=== PATIENT | female | born 1990 | race African-American/Black ===

== ENCOUNTER 2017-01-06 23:29 | Emergency (ER) | payer OTHER ==
[~2017-01-06] VITALS: Ht 177.8 cm; Wt 58.0 kg
[~2017-01-06 23:29] MED LIST: DIFL150T PO
[2017-01-06 23:32] VITALS: BP 102/61; PULSE 87; RESP 16; TEMP 98; O2SAT 100
== END 2017-01-07 00:36 | disposition left against medical advice (07) ==
LOC: NED 23:29
DX: R10.30 Lower abdominal pain, unspecified (principal)
CPT/HCPCS: 99281

== ENCOUNTER 2017-01-24 15:24 | Emergency (ER) | payer OTHER ==
[~2017-01-24] VITALS: Ht 177.8 cm; Wt 56.0 kg
[2017-01-24 15:27] VITALS: BP 108/54; PULSE 130; RESP 24; TEMP 99.1; O2SAT 98
[2017-01-24 17:00] VITALS: BP 97/64; PULSE 82; RESP 16; O2SAT 97
[2017-01-24] MEDS ORDERED: SODIUM CHLOR 0.9% 1000 ML INJ 1,000 ML IV ONE (17:30)
[2017-01-24] MEDS ORDERED: KETOROLAC TROMETHAMINE 30 MG/ML (IVP) VIAL IV PUSH ONE (17:30)
[2017-01-24] MEDS ORDERED: ONDANSETRON HCL 4 MG/2 ML VIAL IV PUSH ONE (17:30)
--- NOTE | 2017-01-24 17:39 | PD ---
HPI Chief Complaint: GI Complaint Time Seen by Provider: 17:15 Travel History International Travel<30 days: No Contact w/Intl Traveler<30days: No Traveled to known affect area: No History of Present Illness HPI This is a 26-year-old female who presents to the emergency department with lower abdominal pain that started yesterday during sexual intercourse, described as sharp, starting in her right lower quadrant and radiating around her back into the left, worse last evening but continuing throughout the day today and intermittently causing her to cry. She says "she feels like she is going to ". She's vomited multiple times today. She does report some white vaginal discharge. She denies any fevers or chills. She doesn't remember when her last menstrual cycle was. PFSH Past Medical History Atrial Fibrillation: No Coronary Artery Disease: No Diabetes: No ?: Not LMP: 12/24/16 : 1 Miscarriage: 1 Social History Alcohol Use: Yes (OCCASIONAL) Tobacco Use: No Substance Use: No Allergies-Medications (Allergen,Severity, Reaction): Coded Allergies: Latex (Verified Allergy, Intermediate, itching, 01/24/17) Sulfa (Verified Allergy, Intermediate, Rash, 01/24/17) Reported Meds & Prescriptions Reported Meds & Active Scripts Active No Active Prescriptions or Reported Medications Review of Systems Except as stated in HPI: all other systems reviewed are Neg Physical Exam Narrative GENERAL:Well appearing, no acute distress SKIN: Warm and dry. HEAD: Atraumatic. Normocephalic. EYES: Pupils equal and round. No injection or drainage. ENT: Moist mucous membranes NECK: Trachea midline. CARDIOVASCULAR: Regular rate and rhythm. No murmur appreciated. RESPIRATORY: Clear to auscultation. Breath sounds equal bilaterally. GASTROINTESTINAL: Abdomen soft, tender to palpation with rebound in the left lower quadrant. 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 NEUROLOGICAL: Awake and alert. No obvious cranial nerve deficits. Moving all extremities. PSYCHIATRIC: Appropriate mood and affect; insight and judgment normal. Data Data Last Documented VS Vital Signs Date Time Temp Pulse Resp B/P Pulse Ox O2 Delivery O2 Flow Rate FiO2 01/24/17 19:02 80 16 102/60 97 Room Air 01/24/17 15:27 99.1 Orders Complete Blood Count With Diff (01/24/17 17:23) Comprehensive Metabolic Panel (01/24/17 17:23) ^ Insert Iv (01/24/17 17:23) Ed Urine Pregnancytest Poc (01/24/17 17:23) Us Pelvis Comp W Doppler (01/24/17 ) Ketorolac Inj (Toradol Inj) (01/24/17 17:30) Sodium Chlor 0.9% 1000 Ml Inj (Ns 1000 M (01/24/17 17:30) Ondansetron Inj (Zofran Inj) (01/24/17 17:30) Wet Prep Profile (01/24/17 17:23) Gc And Chlamydia Pcr (01/24/17 17:23) Ct Abd/Pel W Iv Contrast(Rout) (01/24/17 ) Morphine Inj (Morphine Inj) (01/24/17 19:45) Labs Laboratory Tests Test 01/24/17 01/24/17 17:35 18:50 White Blood Count 9.4 TH/MM3 Red Blood Count 4.49 MIL/MM3 Hemoglobin 11.6 GM/DL Hematocrit 35.7 % Mean Corpuscular Volume 79.6 FL Mean Corpuscular Hemoglobin 25.8 PG Mean Corpuscular Hemoglobin 32.4 % Concent Red Cell Distribution Width 15.5 % Platelet Count 158 TH/MM3 Mean Platelet Volume 9.5 FL Neutrophils (%) (Auto) 89.5 % Lymphocytes (%) (Auto) 5.3 % Monocytes (%) (Auto) 4.7 % Eosinophils (%) (Auto) 0.1 % Basophils (%) (Auto) 0.4 % Neutrophils # (Auto) 8.4 TH/MM3 Lymphocytes # (Auto) 0.5 TH/MM3 Monocytes # (Auto) 0.4 TH/MM3 Eosinophils # (Auto) 0.0 TH/MM3 Basophils # (Auto) 0.0 TH/MM3 CBC Comment DIFF FINAL Differential Comment Sodium Level 134 MEQ/L Potassium Level 4.5 MEQ/L Chloride Level 102 MEQ/L Carbon Dioxide Level 25.9 MEQ/L Anion Gap 6 MEQ/L Blood Urea Nitrogen 5 MG/DL Creatinine 0.86 MG/DL Estimat Glomerular Filtration 97 ML/MIN Rate Random Glucose 79 MG/DL Calcium Level 9.2 MG/DL Total Bilirubin 0.7 MG/DL Aspartate Amino Transf 31 U/L (AST/SGOT) Alanine Aminotransferase 26 U/L (ALT/SGPT) Alkaline Phosphatase 55 U/L Total Protein 7.8 GM/DL Albumin 3.8 GM/DL Clue Cells (Wet Prep) NONE SEEN Vaginal Trichomonas (Wet Prep) NONE SEEN Vaginal Yeast (Wet Prep) NONE SEEN MDM Medical Decision Making Medical Screen Exam Complete: Yes Emergency Medical Condition: Yes Interpretation(s) No leukocytosis, left shift Electrolytes are reassuring Wet prep is negative Differential Diagnosis Ovarian cyst rupture, ovarian torsion, tubo-ovarian abscess, appendicitis, kidney stone, urinary tract infection Narrative Course This is a 26-year-old female who presents to the emergency department with right lower abdominal pain that started fairly abruptly during sexual intercourse yesterday. Clinical history is consistent with an ovarian cyst but the patient does have tachycardia on arrival and has had multiple episodes of vomiting today. She is placed on a monitor and an IV was established. Labs demonstrate no leukocytosis but a left shift. Pelvic exam demonstrates some white thick discharge with right adnexal tenderness. She does have a history of chlamydia back in February of last year. Ultrasound will be obtained to rule out torsion or tubo-ovarian abscess and CT abdomen and pelvis will be obtained to rule out appendicitis. Patient will be discharged by oncoming provider. I think if both imaging studies are negative the patient should be treated for pelvic inflammatory disease. Scripts No Active Prescriptions or Reported Meds Niharika Christianson MD Jan 24, 2017 17:39
[2017-01-24 18:16] LABS: AUTOMATED NEUTROPHIL # 8.4 TH/MM3 (1.8-7.7); BASOPHIL % 0.4 % (0.0-2.0); EOSINOPHIL % 0.1 % (0.0-4.0); HEMATOCRIT 35.7 % (35.0-46.0); HEMO FLAGS DIFF FINAL; LYMPH % 5.3 % (9.0-44.0); LYMPHOCYTE # 0.5 TH/MM3 (1.0-4.8); MEAN CELL VOLUME 79.6 FL (80.0-100.0); MEAN CORPUSCULAR HEMOGLOBIN 25.8 PG (27.0-34.0); MEAN CORPUSCULAR HGB CONC 32.4 % (32.0-36.0); MONO % 4.7 % (0.0-8.0); NEUT % 89.5 % (16.0-70.0); PLATELET COUNT 158 TH/MM3 (150-450); RED BLOOD COUNT 4.49 MIL/MM3 (4.00-5.30); RED CELL DISTRIBUTION WIDTH 15.5 % (11.6-17.2); WHITE BLOOD COUNT 9.4 TH/MM3 (4.0-11.0)
[2017-01-24 18:43] LABS: ALKALINE PHOSPHATASE 55 U/L (45-117); TOTAL BILIRUBIN ADULT 0.7 MG/DL (0.2-1.0)
[2017-01-24 18:49] LABS: ALT (GPT) 26 U/L (10-53); ANION GAP 6 MEQ/L (5-15); AST (GOT) 31 U/L (15-37); BICARBONATE 25.9 MEQ/L (21.0-32.0); BLOOD UREA NITROGEN 5 MG/DL (7-18); CHLORIDE 102 MEQ/L (98-107); GLOMERULAR FILTRATION RATE 97 ML/MIN (>89); POTASSIUM 4.5 MEQ/L (3.5-5.1); SODIUM (NA) 134 MEQ/L (136-145)
[2017-01-24 19:02] VITALS: BP 102/60; PULSE 80; RESP 16; O2SAT 97
[2017-01-24] MEDS ORDERED: MORPHINE SULFATE 4 MG/ML INJ IV PUSH ONE (19:45)
[2017-01-24] MEDS ORDERED: DIATRIZOATE MEGLUM/DIATRIZOATE SOD 9 ML CUP ONE (19:59)
--- NOTE | 2017-01-24 20:17 | RADRPT ---
EXAM DATE/TIME: 01/24/2017 19:01 [facility] COMPARISON: No previous studies available for comparison. INDICATIONS : Pelvic pain. MEDICAL HISTORY : . Miscarriage. SURGICAL HISTORY : None. ENCOUNTER: Initial ACUITY: 2 days PAIN SCORE: 10/10 LOCATION: Bilateral pelvis MEASUREMENTS: UTERUS: 8.4 x 4.7 x 3.1 cm ENDOMETRIAL STRIPE: 9 mm RIGHT OVARY: 4.4 x 3.0 x 2.6 cm LEFT OVARY: 2.8 x 2.1 x 1.5 cm FINDINGS: UTERUS: The myometrium has homogeneous echotexture without mass. RIGHT OVARY: complex cystic lesion measures 24 x 20 x 16 mm. Minimal peripheral vascularity. LEFT OVARY: Ovary contains no mass or significant cystic lesion. MISCELLANEOUS: Small amount free fluid. CONCLUSION: 1. Complex cystic lesion right ovary measures 2.4 cm. This may be related to an involuting cyst. Clos e interval followup recommended. 2. Small amount of pelvic free fluid. Karthikeyan Leiva MD on January 24, 2017 at 20:12 Board Certified Radiologist. This report was verified electronically.
[2017-01-24 20:27] LABS: BLOOD, URINE NEG (NEG); COMMENT (UR) CULT NOT INDICATED; CULTURE IF INDICATED CULT NOT INDICATED; GLUCOSE,URINE NEG (NEG); KETONE, URINE NEG (NEG); NITRITE,URINE NEG (NEG); SQUAMOUS EPITHELIAL CELL URINE <1 /hpf (0-5); URINE COLOR YELLOW (YELLW/STRAW)
[2017-01-24] MEDS ORDERED: IOHEXOL 350 MG/ML 10 ML VIAL (for RAD DIAG) IV ONE (21:36)
--- NOTE | 2017-01-24 21:55 | RADRPT ---
EXAM DATE/TIME: 01/24/2017 21:36 [facility] COMPARISON: No previous studies available for comparison. INDICATIONS : Right lower quadrant pain; possible appendicitis. IV CONTRAST: 62 cc Omnipaque 350 (iohexol) IV ORAL CONTRAST: Partial prescribed oral contrast ingested. RADIATION DOSE: 4.75 CTDIvol (mGy) MEDICAL HISTORY : None SURGICAL HISTORY : None. ENCOUNTER: Initial ACUITY: 1 day PAIN SCALE: 7/10 LOCATION: Right lower quadrant TECHNIQUE: Volumetric scanning of the abdomen and pelvis was performed. Using automated exposure control and ad justment of the mA and/or kV according to patient size, radiation dose was kept as low as reasonably achievable to obtain optimal diagnostic quality images. FINDINGS: LOWER LUNGS: The visualized lower lungs are clear. LIVER: Homogeneous density without lesion. There is no dilation of the biliary tree. No calcified gallston es. SPLEEN: Normal size without lesion. PANCREAS: Within normal limits. KIDNEYS: Normal in size and shape. There is no mass, stone or hydronephrosis. ADRENAL GLANDS: Within normal limits. VASCULAR: There is no aortic aneurysm. BOWEL/MESENTERY: The stomach, small bowel, and colon demonstrate no acute abnormality. There is no free intraperitone al air or fluid. ABDOMINAL WALL: Within normal limits. RETROPERITONEUM: There is no lymphadenopathy. BLADDER: No wall thickening or mass. REPRODUCTIVE: Small hemorrhagic cyst measures 1.9 cm right ovary. Small pelvic free fluid. INGUINAL: There is no lymphadenopathy or hernia. MUSCULOSKELETAL: Within normal limits for patient age. CONCLUSION: 1. Normal appendix. 2. Small hemorrhagic cyst the right ovary measured 1.9 cm with small pelvic free fluid. Karthikeyan Leiva MD on January 24, 2017 at 21:50 Board Certified Radiologist. This report was verified electronically.
[2017-01-24 22:17] LABS: CHLAMYDIA PCR DETECTED (NOT DETECT); NEISSERIA PCR DETECTED (NOT DETECT)
--- NOTE | 2017-01-24 22:27 | PD ---
Data Data Last Documented VS Vital Signs Date Time Temp Pulse Resp B/P Pulse Ox O2 Delivery O2 Flow Rate FiO2 01/24/17 19:02 80 16 102/60 97 Room Air 01/24/17 15:27 99.1 Orders Complete Blood Count With Diff (01/24/17 17:23) Comprehensive Metabolic Panel (01/24/17 17:23) ^ Insert Iv (01/24/17 17:23) Ed Urine Pregnancytest Poc (01/24/17 17:23) Ketorolac Inj (Toradol Inj) (01/24/17 17:30) Sodium Chlor 0.9% 1000 Ml Inj (Ns 1000 M (01/24/17 17:30) Ondansetron Inj (Zofran Inj) (01/24/17 17:30) Wet Prep Profile (01/24/17 17:23) Gc And Chlamydia Pcr (01/24/17 17:23) Ct Abd/Pel W Iv Contrast(Rout) (01/24/17 ) Morphine Inj (Morphine Inj) (01/24/17 19:45) Urinalysis - C+S If Indicated (01/24/17 19:36) Oral Contrast - Adult (01/24/17 19:48) Us Pelvis Comp W Dop Transvag (01/24/17 ) Diatrizoate Liq ( Gastroview Liq) (01/24/17 19:59) Iohexol 350 Inj (Omnipaque 350 Inj) (01/24/17 21:36) Azithromycin Powd Pack (Zithromax Powd P (01/24/17 22:30) Ceftriaxone Inj (Rocephin Inj) (01/24/17 22:30) Lidocaine 1% Inj (50 Ml) (Xylocaine 1% I (01/24/17 22:30) Labs Laboratory Tests Test 01/24/17 01/24/17 01/24/17 17:35 18:50 19:50 White Blood Count 9.4 TH/MM3 Red Blood Count 4.49 MIL/MM3 Hemoglobin 11.6 GM/DL Hematocrit 35.7 % Mean Corpuscular Volume 79.6 FL Mean Corpuscular Hemoglobin 25.8 PG Mean Corpuscular Hemoglobin 32.4 % Concent Red Cell Distribution Width 15.5 % Platelet Count 158 TH/MM3 Mean Platelet Volume 9.5 FL Neutrophils (%) (Auto) 89.5 % Lymphocytes (%) (Auto) 5.3 % Monocytes (%) (Auto) 4.7 % Eosinophils (%) (Auto) 0.1 % Basophils (%) (Auto) 0.4 % Neutrophils # (Auto) 8.4 TH/MM3 Lymphocytes # (Auto) 0.5 TH/MM3 Monocytes # (Auto) 0.4 TH/MM3 Eosinophils # (Auto) 0.0 TH/MM3 Basophils # (Auto) 0.0 TH/MM3 CBC Comment DIFF FINAL Differential Comment Sodium Level 134 MEQ/L Potassium Level 4.5 MEQ/L Chloride Level 102 MEQ/L Carbon Dioxide Level 25.9 MEQ/L Anion Gap 6 MEQ/L Blood Urea Nitrogen 5 MG/DL Creatinine 0.86 MG/DL Estimat Glomerular Filtration 97 ML/MIN Rate Random Glucose 79 MG/DL Calcium Level 9.2 MG/DL Total Bilirubin 0.7 MG/DL Aspartate Amino Transf 31 U/L (AST/SGOT) Alanine Aminotransferase 26 U/L (ALT/SGPT) Alkaline Phosphatase 55 U/L Total Protein 7.8 GM/DL Albumin 3.8 GM/DL Clue Cells (Wet Prep) NONE SEEN Vaginal Trichomonas (Wet Prep) NONE SEEN Vaginal Yeast (Wet Prep) NONE SEEN Chlamydia trachomatis DNA DETECTED (PCR) Neisseria gonorrhoeae DNA DETECTED (PCR) Urine Color YELLOW Urine Turbidity CLEAR Urine pH 8.0 Urine Specific [place] 1.019 Urine Protein NEG mg/dL Urine Glucose (UA) NEG mg/dL Urine Ketones NEG mg/dL Urine Occult Blood NEG Urine Nitrite NEG Urine Bilirubin NEG Urine Urobilinogen LESS THAN 2.0 MG/DL Urine Leukocyte Esterase NEG Urine RBC 2 /hpf Urine WBC 4 /hpf Urine Squamous Epithelial <1 /hpf Cells Microscopic Urinalysis Comment CULT NOT INDICATED [facility] Medical Record Reviewed: Yes Supervised Visit with [facility]ST: No Narrative Course CBC & BMP Diagram 01/24/17 17:35 Wet prep negative x 3 LFTs normal UA normal Serology + for Chlamygida and Gonorrhea Last 24 hours Impressions Abdomen/Pelvis/Transvag US 01/24/17 0000 Signed Impressions: Service Date/Time: Tuesday, January 24, 2017 19:01 - CONCLUSION: 1. Complex cystic lesion right ovary measures 2.4 cm. This may be related to an involuting cyst. Close interval followup recommended. 2. Small amount of pelvic free fluid. Karthikeyan Leiva MD Abdomen/Pelvis CT 01/24/17 0000 Signed Impressions: Service Date/Time: Tuesday, January 24, 2017 21:36 - CONCLUSION: 1. Normal appendix. 2. Small hemorrhagic cyst the right ovary measured 1.9 cm with small pelvic free fluid. Karthikeyan Leiva MD Please refer to outgoing provider note. Rocephin/Azithromycin started. Doxy prescribed. Pain controlled. Follow up with Dr Oconnor. Return precautions. Diagnosis Primary Impression: Cervicitis Additional Impression: Ovarian cyst Qualified Code: N83.201 - Cyst of right ovary Referrals: Lucero Oconnor MD 2 days [facility] Nurse 2 days Additional Instruction: You have a choice when it comes to health care, and we are glad that you chose [facility]. Hopefully, we have met your expectations on today's visit. You are welcome to return to [facility] at any time, as we are committed to meeting the health care needs of our community. Med/Other Pt SpecificInfo: Prescription(s) given Scripts Doxycycline Hyclate 100 Mg Dmc470 Mg PO BID #28 CAP Ref 0 Prov:Anderson Grace MD 01/24/17 Disposition: 01 DISCHARGE HOME Condition: Stable Anderson Grace MD Jan 24, 2017 22:27
[2017-01-24] MEDS ORDERED: cefTRIAXone 250 MG VIAL IM ONE (22:30)
[2017-01-24] MEDS ORDERED: LIDOCAINE HCL 1% 50 ML VIAL IM ONE (22:30)
[2017-01-24] MEDS ORDERED: AZITHROMYCIN PWD FOR SUSP 1 GM PACKET PO ONE (22:30)
[2017-01-24] MEDS ORDERED: DOXY100C PO (22:34)
== END 2017-01-25 00:13 | disposition home or self-care (01) ==
LOC: NEPC 15:24
DX: N72 Inflammatory disease of cervix uteri (principal); N83.201 Unspecified ovarian cyst, right side; R11.10 Vomiting, unspecified; R00.0 Tachycardia, unspecified
CPT/HCPCS: 74177; 76830; 76856; 80053; 81001; 84703; 85025; 87210; 87491; 87591; 93975; 96361; 96372; 96374; 96375; 99284; J0696; J1885; J2270; J2405; J7030; Q9963; Q9967

== ENCOUNTER 2017-07-11 22:58 | Emergency (ER) | payer OTHER ==
[~2017-07-11] VITALS: Ht 179.1 cm; Wt 57.3 kg
[~2017-07-11 22:58] MED LIST changes: -DIFL150T PO; +DOXY100C PO
[2017-07-11 23:06] VITALS: BP 99/57; PULSE 67; RESP 14; TEMP 99; O2SAT 100
--- NOTE | 2017-07-11 23:47 | PD ---
HPI Chief Complaint: GI Complaint Time Seen by Provider: 23:46 Travel History International Travel<30 days: No Contact w/Intl Traveler<30days: No Traveled to known affect area: No History of Present Illness HPI The patient is a 26-year-old female, G3, P0, A2both spontaneous abortions who states she is 6-7 weeks , her last missed her period was May 23, and she has nausea and some slight pelvic pain in the left pelvis. She denies any vaginal bleeding. She does not know her blood type. 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 [facility] Past Medical History Medical History: Denies Significant Hx Atrial Fibrillation: No Coronary Artery Disease: No Diabetes: No Diminished Hearing: No Tetanus Vaccination: < 5 Years Influenza Vaccination: Yes ?: LMP: 05/23/17 : 3 Miscarriage: 2 Past Surgical History Surgical History: No Previous Surgery Social History Alcohol Use: Yes (OCCASIONAL) Tobacco Use: No Substance Use: No Allergies-Medications (Allergen,Severity, Reaction): Coded Allergies: Latex (Verified Allergy, Intermediate, itching, 07/11/17) Sulfa (Verified Allergy, Intermediate, Rash, 07/11/17) Reported Meds & Prescriptions Reported Meds & Active Scripts Active Review of Systems Except as stated in HPI: all other systems reviewed are Neg Physical Exam Narrative GENERAL: The patient is alert, oriented 3 in minimal apparent distress with her left pelvic pain. Her vital signs are normal. SKIN: Focused skin assessment warm/dry. HEAD: Atraumatic. Normocephalic. EYES: Pupils equal and round. No scleral icterus. No injection or drainage. ENT: No nasal bleeding or discharge. Mucous membranes pink and moist. NECK: Trachea midline. No JVD. CARDIOVASCULAR: Regular rate and rhythm. No murmur appreciated. RESPIRATORY: No accessory muscle use. Clear to auscultation. Breath sounds equal bilaterally. GASTROINTESTINAL: Abdomen soft, with minimal discomfort in the left pelvis, nondistended. Hepatic and splenic margins not palpable. No guarding or rebound is present. MUSCULOSKELETAL: No obvious deformities. No clubbing. No cyanosis. No edema. NEUROLOGICAL: Awake and alert. No obvious cranial nerve deficits. Motor grossly within normal limits. Normal speech. PSYCHIATRIC: Appropriate mood and affect; insight and judgment normal. GENITOURINARY: Normal external genitalia without lesions or erythema. Vaginal vault without blood and there is a white drainage. Cervical os was closed with clear drainage. No cervical motion tenderness. Uterus nontender and 8 weeks enlarged. Bilateral adnexa nontender without masses. Data Data Last Documented VS Vital Signs Date Time Temp Pulse Resp B/P Pulse Ox O2 Delivery O2 Flow Rate FiO2 07/11/17 23:34 18 07/11/17 23:06 99.0 67 99/57 100 Room Air Orders Beta Hcg (Quant/Titer) (07/11/17 23:48) Complete Blood Count With Diff (07/11/17 23:48) Basic Metabolic Panel (Bmp) (07/11/17 23:48) Complete Rh (07/11/17 23:48) Urinalysis - C+S If Indicated (07/11/17 23:48) Labs Laboratory Tests Test 07/12/17 00:18 White Blood Count 7.3 TH/MM3 Red Blood Count 4.12 MIL/MM3 Hemoglobin 10.6 GM/DL Hematocrit 33.0 % Mean Corpuscular Volume 80.1 FL Mean Corpuscular Hemoglobin 25.7 PG Mean Corpuscular Hemoglobin 32.1 % Concent Red Cell Distribution Width 16.0 % Platelet Count 176 TH/MM3 Mean Platelet Volume 8.7 FL Neutrophils (%) (Auto) 69.4 % Lymphocytes (%) (Auto) 22.2 % Monocytes (%) (Auto) 5.5 % Eosinophils (%) (Auto) 2.5 % Basophils (%) (Auto) 0.4 % Neutrophils # (Auto) 5.1 TH/MM3 Lymphocytes # (Auto) 1.6 TH/MM3 Monocytes # (Auto) 0.4 TH/MM3 Eosinophils # (Auto) 0.2 TH/MM3 Basophils # (Auto) 0.0 TH/MM3 CBC Comment DIFF FINAL Differential Comment Sodium Level 137 MEQ/L Potassium Level 3.6 MEQ/L Chloride Level 103 MEQ/L Carbon Dioxide Level 25.2 MEQ/L Anion Gap 9 MEQ/L Blood Urea Nitrogen 7 MG/DL Creatinine 0.70 MG/DL Estimat Glomerular Filtration 123 ML/MIN Rate Random Glucose 86 MG/DL Calcium Level 8.7 MG/DL Human Chorionic Gonadotropin, [address] MIU/ML Quant MDM Medical Decision Making Medical Screen Exam Complete: Yes Emergency Medical Condition: Yes Medical Record Reviewed: Yes Interpretation(s) The beta-hCG is 28,735. This corresponds to 2-3 months post conception. The CBC shows a hemoglobin of 10.6 with a hematocrit of 33.0 but is otherwise normal. The basic metabolic profile is normal. Differential Diagnosis Ectopic , ligament pain, ovarian cyst Narrative Course The patient has minimal tenderness and an appropriate size uterus for her beta titer. She likely has some ovarian pain but this is minimal, the tenderness is almost nonexistent. Diagnosis Primary Impression: Ovarian cyst Additional Impression: Intrauterine Med/Other Pt SpecificInfo: No Change to Meds Disposition: 01 DISCHARGE HOME Condition: Stable Jordan Mcdaniel MD Jul 11, 2017 23:47
[2017-07-12 00:43] LABS: AUTOMATED NEUTROPHIL # 5.1 TH/MM3 (1.8-7.7); BASOPHIL % 0.4 % (0.0-2.0); EOSINOPHIL # 0.2 TH/MM3 (0-0.4); EOSINOPHIL % 2.5 % (0.0-4.0); HEMO FLAGS DIFF FINAL; LYMPH % 22.2 % (9.0-44.0); LYMPHOCYTE # 1.6 TH/MM3 (1.0-4.8); MEAN CELL VOLUME 80.1 FL (80.0-100.0); MEAN CORPUSCULAR HEMOGLOBIN 25.7 PG (27.0-34.0); MEAN CORPUSCULAR HGB CONC 32.1 % (32.0-36.0); MONO % 5.5 % (0.0-8.0); NEUT % 69.4 % (16.0-70.0); PLATELET COUNT 176 TH/MM3 (150-450); RED BLOOD COUNT 4.12 MIL/MM3 (4.00-5.30); WHITE BLOOD COUNT 7.3 TH/MM3 (4.0-11.0)
[2017-07-12 00:50] LABS: POTASSIUM 3.6 MEQ/L (3.5-5.1)
[2017-07-12 00:53] LABS: BICARBONATE 25.2 MEQ/L (21.0-32.0)
[2017-07-12] MEDS ORDERED: ZOFR4TAB3 SL (01:32)
[2017-07-12 01:41] VITALS: BP 98/55; TEMP 98.7
[2017-07-12] MEDS ORDERED: ONDANSETRON HCL 4 MG/2 ML VIAL IV ONE (01:45)
== END 2017-07-12 01:56 | disposition home or self-care (01) ==
LOC: PHED 22:58
DX: O34.81 Maternal care for other abnormalities of pelvic organs, first trimester (principal); N83.209 Unspecified ovarian cyst, unspecified side; Z3A.01 Less than 8 weeks gestation of pregnancy
CPT/HCPCS: 80048; 84702; 85025; 86901; 99284; J2405

== ENCOUNTER 2017-11-04 11:03 | Emergency (ER) | payer OTHER ==
[~2017-11-04 11:03] MED LIST changes: -DOXY100C PO; +ZOFR4TAB3 SL
[2017-11-04] MEDS ORDERED: LACTATED RINGER'S 1000 ML INJ 1,000 ML IV SCH (11:54)
--- NOTE | 2017-11-04 11:57 | PD ---
HPI Chief Complaint Contractions Date Seen: Nov 04, 2017 Time Seen: 11:45 Travel History International Travel<30 Days: No Contact w/Intl Traveler<30Days: No Known Affected Area: No ( ) History of Present Illness HPI Patient is a 27 year old at 23/4 weeks gestation, patient of Anna Srivastava, that presents to the [facility] ED with chief complaints of contractions and vomiting. Patient states that on Thursday night, 11/02/17, she experienced cramping abdominal pain and vomited once. The next day, she was okay , but the pain returned this morning. She was able to eat a light breakfast and headed to work at the pain increased and she vomited twice which prompted her to come to the ED. She describes the pain as 9.5/10 squeezing pain in her middle abdomen. Notably, the patient has had nausea and vomiting throughout this and has not been able to keep food down most of the time. She has lost 10 pounds during this . She is not taking any medication for nausea. She denies fever or chills, dysuria, abnormal vaginal discharge, and vaginal bleeding. She had sexual intercourse last night. Weeks Gestation: 23 Para: 0 : 2 History Past Medical History Narrative Medical Chronic back pain Anemia during Obstetric History Obstetric History -1 miscarriage at 8 weeks in January 2017 Past Surgical History Surgical History: No Previous Surgery Family History Narrative Family History Dad had an unknown type of cancer Mom is healthy Social History Alcohol Use: No Tobacco Use: No Substance Abuse: No Allergies-Medications (Allergen,Severity, Reaction): Coded Allergies: Sulfa (Sulfonamide Antibiotics) (Unverified Allergy, Intermediate, Rash, ) latex (Unverified Allergy, Intermediate, itching, 07/14/17) Home Meds Active Scripts Ferrous Sulfate (Ferrous Sulfate) 325 Mg (65 Mg Iron) Tablet, 325 MG PO BIDPC for Nutritional Supplement, #60 TAB 0 Refills Prov:Shama Guerrero MD R2 11/04/17 Promethazine Supp (Phenergan Supp) 25 Mg Supp, 25 MG RECTAL Q6H Y for NAUSEA OR VOMITING, #6 SUPP 0 Refills Prov:Shama Guerrero MD R2 11/04/17 Promethazine (Phenergan) 25 Mg Tablet, 25 MG PO Q6H Y for NAUSEA OR VOMITING, # 120 TAB 1 Refill Prov:Eko,Shama Ramsey MD R2 11/04/17 Ondansetron Odt (Zofran Odt) 4 Mg Tab, 4 MG SL Q6HR Y for Nausea/Vomiting, #30 TAB 0 Refills Prov:Jordan Mcdaniel MD 07/12/17 Review of Systems Except as stated in HPI: all other systems reviewed are Neg Physical Exam Narrative GENERAL: Well-nourished, well-developed patient. SKIN: Warm and dry. HEAD: Normocephalic and atraumatic. EYES: No scleral icterus. No injection or drainage. ENT: No nasal drainage noted. Mucous membranes pink. Airway patent. NECK: Supple, trachea midline. No JVD. CARDIOVASCULAR: Regular rate and rhythm without murmurs, gallops, or rubs. RESPIRATORY: Breath sounds equal bilaterally. No accessory muscle use. ABDOMEN/GI: Abdomen soft, non-tender, bowel sounds present, no rebound, no guarding Gravid abdomen GENITOURINARY: External Genitalia: intact and normal in appearance Cervix: Posterior, thick, closed Membranes: Intact Uterine Contractions: Present, frequent, irregular FHT's: Category: I Baseline: 140 Reactive: Accelerations present Variability: Moderate Decels: None EXTREMITIES: No cyanosis or edema. NEUROLOGICAL: Awake and alert. Motor and sensory grossly within normal limits. Five out of 5 muscle strength in all muscle groups. Normal speech. Data Data Vital Signs Reviewed: Yes Orders Orders Vital Signs (Adult) .ON ADMISSION (11/04/17 11:54) ^ Labor Status (11/04/17 11:54) Urinalysis - C+S If Indicated (11/04/17 11:54) ^ Non Stress Test (11/04/17 11:54) ^ Hydration (11/04/17 11:54) Cbc No Diff, Includes Plts (11/04/17 11:54) Comprehensive Metabolic Panel (11/04/17 11:54) Lactated Ringer's 1000 Ml Inj (Lr 1000 M (11/04/17 11:54) Ondansetron Inj (Zofran Inj) (11/04/17 12:00) Drug Screen, Random Urine (11/04/17 11:54) MDM Medical Record Reviewed: Yes Interpretation(s) 27-year-old at 23/4 presents with premature contractions and a urinary tract infection Plan Intrauterine , heart tones reassuring at category 1 -Contractions present on tocometer -Cervix closed -LR boluses -Fentanyl 25 g IV -Terbutaline 0.25mg subq -Will check UA, CBC, and CMP for UTI/dehydration, anemia, and electrolytes COURSE -Pt felt better after 2 fluid boluses, fentanyl, and 1 dose of terbutaline with diminished contractions -CBC showed anemia, CMP was wnl except for a slight hyponatremia of 134, glucose of 72, and albumin of 2.9 -UA was indicative of a UTI -Will send home with a prescription for one-time dose of fosfomycin 3gm powder for UTI -Phenergan by mouth with backup Phenergan suppository Diagnosis Diagnosis: Primary Impression: uterine contractions in second trimester, antepartum Additional Impression: Nausea and vomiting during Disposition: DISCHARGE HOME Condition: Stable Scripts Ferrous Sulfate (Ferrous Sulfate) 325 Mg (65 Mg Iron) Tablet 325 MG PO BIDPC for Nutritional Supplement, #60 TAB 0 Refills Prov: Shama Guerrero MD R2 11/04/17 Promethazine Supp (Phenergan Supp) 25 Mg Supp 25 MG RECTAL Q6H Y for NAUSEA OR VOMITING, #6 SUPP 0 Refills Prov: Shama Guerrero MD R2 11/04/17 Promethazine (Phenergan) 25 Mg Tablet 25 MG PO Q6H Y for NAUSEA OR VOMITING, #120 TAB 1 Refill Prov: Shama Guerrero MD R2 11/04/17 Patient Instructions: Abdominal Pain in (ED), General Instructions, Nausea and Vomiting in (ED), Labor (ED), Urinary Tract Infection in (ED) Shama Guerrero MD R2 Nov 04, 2017 11:57
[2017-11-04] MEDS ORDERED: ONDANSETRON HCL 4 MG/2 ML VIAL IV PUSH ONE (12:00)
[2017-11-04 12:24] LABS: HEMATOCRIT 30.1 % (35.0-46.0); MEAN CELL VOLUME 81.2 FL (80.0-100.0); MEAN CORPUSCULAR HEMOGLOBIN 26.2 PG (27.0-34.0); MEAN CORPUSCULAR HGB CONC 32.3 % (32.0-36.0); PLATELET COUNT 201 TH/MM3 (150-450); RED BLOOD COUNT 3.71 MIL/MM3 (4.00-5.30); REVIEW FLAG FINAL; WHITE BLOOD COUNT 10.9 TH/MM3 (4.0-11.0)
[2017-11-04] MEDS ORDERED: PROM1SUP7 RECTAL (12:31)
[2017-11-04] MEDS ORDERED: PROM25TA10 PO (12:31)
[2017-11-04] MEDS ORDERED: FERR325T18 PO (12:31)
[2017-11-04 12:41] LABS: BACTERIA, URINE RARE /hpf; BLOOD, URINE NEG (NEG); COMMENT (UR) CULTURE INDICATED; CULTURE IF INDICATED CULTURE INDICATED; GLUCOSE,URINE NEG (NEG); KETONE, URINE NEG (NEG); MUCUS URINE FEW /lpf (OCC); NITRITE,URINE NEG (NEG); PH, URINE 7.5 (5.0-8.5); SQUAMOUS EPITHELIAL CELL URINE 6 /hpf (0-5); URINE COLOR YELLOW (YELLW/STRAW)
[2017-11-04] MEDS ORDERED: TERBUTALINE INJ 1 MG/ML AMP SQ PRN (12:45)
[2017-11-04 12:47] LABS: ALT (GPT) 48 U/L (10-53); ANION GAP 6 MEQ/L (5-15); AST (GOT) 30 U/L (15-37); BICARBONATE 25.3 MEQ/L (21.0-32.0); BLOOD UREA NITROGEN 5 MG/DL (7-18); CHLORIDE 103 MEQ/L (98-107); GLOMERULAR FILTRATION RATE 158 ML/MIN (>89); POTASSIUM 4.1 MEQ/L (3.5-5.1); SODIUM (NA) 134 MEQ/L (136-145)
[2017-11-04 12:49] LABS: ALKALINE PHOSPHATASE 68 U/L (45-117); TOTAL BILIRUBIN ADULT 0.2 MG/DL (0.2-1.0)
[2017-11-04 14:02] VITALS: BP 101/59; PULSE 104; TEMP 97.3
== END 2017-11-04 14:30 | disposition home or self-care (01) ==
LOC: HOBED 11:03
DX: O60.02 Preterm labor without delivery, second trimester (principal); O21.2 Late vomiting of pregnancy; O23.42 Unspecified infection of urinary tract in pregnancy, second trimester; B96.89 Other specified bacterial agents as the cause of diseases classified elsewhere; Z3A.23 23 weeks gestation of pregnancy
CPT/HCPCS: 80053; 80307; 81001; 85027; 87086; 96361; 96372; 96374; 96375; 99284; J2405; J3010; J3105; J7120

== ENCOUNTER 2017-11-09 16:55 | Emergency (ER) | payer OTHER ==
[~2017-11-09 16:55] MED LIST changes: +FERR325T18 PO; +PROM1SUP7 RECTAL; +PROM25TA10 PO
[2017-11-09 16:57] VITALS: BP 107/57; PULSE 75; RESP 17; TEMP 98.6; O2SAT 99
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
[2017-11-09 19:09] VITALS: BP 100/62; PULSE 62; RESP 18; O2SAT 100
[2017-11-09] MEDS ORDERED: KETOROLAC TROMETHAMINE 60 MG/2 ML (IM) VIAL IM ONE (19:15)
== END 2017-11-09 19:54 | disposition home or self-care (01) ==
LOC: NEPD 16:55
DX: O9A.212 Injury, poisoning and certain other consequences of external causes complicating pregnancy, second trimester (principal); S16.1XXA Strain of muscle, fascia and tendon at neck level, initial encounter; S29.012A Strain of muscle and tendon of back wall of thorax, initial encounter; V49.40XA Driver injured in collision with unspecified motor vehicles in traffic accident, initial encounter; Z3A.00 Weeks of gestation of pregnancy not specified
CPT/HCPCS: 96372; 99285; J1885

== ENCOUNTER 2017-12-12 23:16 | Emergency (ER) | payer OTHER ==
[~2017-12-12] VITALS: Ht 180.3 cm; Wt 70.3 kg
[2017-12-12] MEDS ORDERED: LACTATED RINGER'S 1000 ML INJ 1,000 ML IV SCH (23:42)
[2017-12-12] MEDS ORDERED: TERBUTALINE INJ 1 MG/ML AMP SQ PRN (23:45)
[2017-12-13] VITALS (18 sets, daily range): PULSE 65–106; O2SAT 100
--- NOTE | 2017-12-13 00:01 | PD ---
HPI Chief Complaint Contraction pain Date Seen: Dec 12, 2017 Time Seen: 23:55 Travel History International Travel<30 Days: No Contact w/Intl Traveler<30Days: No Known Affected Area: No History of Present Illness HPI 27-year-old black female 28 weeks go see [facility] Srivast[facility] care presents complaining of contractions. Denies bleeding or rupture the membranes. heart rate tracing is reactive. She is trip every 3 minutes. Weeks Gestation: 28 Para: 0 : 2 Miscarriage: 1 History Obstetric History Obstetric History 1 early loss Social History Alcohol Use: No Tobacco Use: No Substance Abuse: No Allergies-Medications (Allergen,Severity, Reaction): Coded Allergies: Sulfa (Sulfonamide Antibiotics) (Unverified Allergy, Intermediate, Rash, ) latex (Unverified Allergy, Intermediate, itching, 12/12/17) Home Meds Active Scripts Nitrofurantoin Monohydrate Macrocrystals (Macrobid) 100 Mg Cap, 100 MG PO BID for Infection for 7 Days, #14 CAP 0 Refills Prov:Crow Jones II, MD 12/13/17 Ferrous Sulfate (Ferrous Sulfate) 325 Mg (65 Mg Iron) Tablet, 325 MG PO BIDPC for Nutritional Supplement, #60 TAB 0 Refills Prov:Shama Guerrero MD R2 11/04/17 Promethazine Supp (Phenergan Supp) 25 Mg Supp, 25 MG RECTAL Q6H Y for NAUSEA OR VOMITING, #6 SUPP 0 Refills Prov:Shama Guerrero MD R2 11/04/17 Promethazine (Phenergan) 25 Mg Tablet, 25 MG PO Q6H Y for NAUSEA OR VOMITING, # 120 TAB 1 Refill Prov:Shama Guerrero MD R2 11/04/17 Ondansetron Odt (Zofran Odt) 4 Mg Tab, 4 MG SL Q6HR Y for Nausea/Vomiting, #30 TAB 0 Refills Prov:Jordan Mcdaniel MD 07/12/17 Review of Systems General / Constitutional: No: Fever, Weight Gain, Chills, Other Eyes: No: Diploplia, Blurred Vision, Visual changes, Pain, Photophobia HENT: No: Headaches, Vertigo, Lightheadedness Cardiovascular: No: Irregular Rhythm, Chest Pain or Discomfort, Palpitations, Tachycardia, Syncope, Varicosities, Edema, Cyanosis Respiratory: No: Cough, Short of Breath, Other Gastrointestinal: Abdominal Pain, No: Nausea, Vomiting, Diarrhea Genitourinary: No: Decreased Urinary Output, Oliguria Musculoskeletal: No: Limited ROM, Weakness, Cramping, Edema, Pain Skin: No Rash, No Itching, No Dryness, No Lumps, No Change in Pigmentation, No Change in Nails, No Alopecia, No Lesions Neurologic: No: Weakness, Dizziness, Syncope, Focal Abnormalities, Coordination Problem, Headache, Slurred Speech, Seizures Psychiatric: No: Depression, Suicidal Ideations, Homicidal Ideation Endocrine: No: Heat Intolerance, Cold Intolerance, Polydipsia, Polyuria, Other Physical Exam Narrative GENERAL: Well-nourished, well-developed patient. SKIN: Warm and dry. HEAD: Normocephalic and atraumatic. EYES: No scleral icterus. No injection or drainage. ENT: No nasal drainage noted. Mucous membranes pink. Airway patent. NECK: Supple, trachea midline. No JVD. CARDIOVASCULAR: Regular rate and rhythm without murmurs, gallops, or rubs. RESPIRATORY: Breath sounds equal bilaterally. No accessory muscle use. BREASTS: Bilateral exam showed no masses , no retractions, no nipple discharge. ABDOMEN/GI: Abdomen soft, non-tender, bowel sounds present, no rebound, no guarding Gravid to [-28] weeks size Fundal Height: [-28] GENITOURINARY: External Genitalia: intact and normal in appearance BUS glands: [-] Cervix: [post-] Dilatation: [closed-] Effacement: [thick-] Station: [-3] Presentation: [-] Membranes: [intact ] Uterine Contractions: [q 3 min-] FHT's: Category: [1-] Baseline: [133-] Reactive: [R-] Variability: [-mod] Decels: [-none] EXTREMITIES: No cyanosis or edema. BACK: Nontender without obvious deformity. No CVA tenderness. NEUROLOGICAL: Awake and alert. Motor and sensory grossly within normal limits. Five out of 5 muscle strength in all muscle groups. Normal speech. Data Data Orders Orders Vital Signs (Adult) .ON ADMISSION (12/12/17 23:42) ^ Labor Status (12/12/17 23:42) Urinalysis - C+S If Indicated (12/12/17 23:42) ^ Non Stress Test (12/12/17 23:42) Fibronectin (12/12/17 23:42) Lactated Ringer's 1000 Ml Inj (Lr 1000 M (12/12/17 23:42) Terbutaline Inj (Brethine Inj) (12/12/17 23:45) Fentanyl Inj (Fentanyl Inj) (12/12/17 23:45) MDM Interpretation(s) 's patient is 27-year-old black female at 28 weeks size clinically contractions, she is trip every 3 minutes initially on presentation. Cervix is closed and thick. Denies bleeding or ruptured membranes. heart rate tracing is reactive. fibronectin done -- positive, urinalysis shows moderate leukocyte esterase and trace protein , UA from lab + for UTI - give 100 mg IV gentamicin 1 time then po macrobid for 1 week Plan Plan of initial tocolyse as with IV fluid, subcutaneous terbutaline, and IV fentanyl , IV gent for UTI then po macrobid for 1 wk , with + FFN will give betamethasone 12 mg IM now and have her return for 2 nd shot in 24 hr Diagnosis Diagnosis: Primary Impression: Threatened labor, antepartum Additional Impressions: 28 weeks gestation of UTI (urinary tract infection) during Disposition: 01 DISCHARGE HOME Condition: Stable Scripts Nitrofurantoin Monohydrate Macrocrystals (Macrobid) 100 Mg Cap 100 MG PO BID for Infection for 7 Days, #14 CAP 0 Refills Prov: Crow Jones II, MD 12/13/17 Crow Jones II, MD Dec 13, 2017 00:01
[2017-12-13 00:11] LABS: AMORPHOUS SEDIMENT, URINE RARE; BACTERIA, URINE OCC /hpf; BILIRUBIN, URINE NEG (NEG); BLOOD, URINE NEG (NEG); GLUCOSE,URINE NEG (NEG); KETONE, URINE NEG (NEG); NITRITE,URINE NEG (NEG); SQUAMOUS EPITHELIAL CELL URINE 12 /hpf (0-5); URINE COLOR YELLOW (YELLW/STRAW); URINE LEUKOCYTE ESTERASE LARGE (NEG); WHITE BLOOD CELL CLUMPS FEW
[2017-12-13] MEDS ORDERED: MACR100C2 PO (00:50)
[2017-12-13] MEDS ORDERED: BETAMETHASONE SOD PHOS/ACETATE SUSP 30 MG/5 ML VIAL IM ONE (01:00)
[2017-12-13] MEDS ORDERED: GENTAMICIN INJ 100 MG in SODIUM CHLORIDE 0.9% INJ 100 ML IV ONE (01:00)
== END 2017-12-13 02:08 | disposition home or self-care (01) ==
LOC: HOBED 23:16
DX: O60.03 Preterm labor without delivery, third trimester (principal); O23.43 Unspecified infection of urinary tract in pregnancy, third trimester; Z3A.28 28 weeks gestation of pregnancy
CPT/HCPCS: 81001; 82731; 87086; 96361; 96365; 96372; 96375; 99284; J0702; J1580; J3010; J3105; J7120

== ENCOUNTER → 2017-12-14 | Outpatient (CLI) | payer OTHER ==
[2017-12-14] MEDS: BETAMETHASONE SOD PHOS/ACETATE SUSP 30 MG/5 ML VIAL IM (08:51)
== END ==
LOC: HOBG 08:22
DX: O60.03 Preterm labor without delivery, third trimester (principal); N39.0 Urinary tract infection, site not specified
CPT/HCPCS: 96372

== ENCOUNTER 2017-12-28 15:40 | Emergency (ER) | payer OTHER ==
[~2017-12-28 15:40] MED LIST changes: +MACR100C2 PO
--- NOTE | 2017-12-28 16:53 | PD ---
HPI Chief Complaint cramping Travel History International Travel<30 Days: No Contact w/Intl Traveler<30Days: No Known Affected Area: No History of Present Illness HPI 27-year-old , IUP at 31.1 care complicated by history of positive fibronectin status post betamethasone on December 13 and The patient presents reporting that she had nausea with 2 episodes of emesis around lunchtime at about 1:30. She subsequently was able to tolerate oral intake. She reports that she was noticing contractions at work that were every 2-3 minutes. By the time she came into decreased to cramping that she felt every 5 minutes. However she reports that since she is arrived. The contractions and cramping have stopped. She denies any aggravating or alleviating factors other than noted, and denies any attempted treatments. The patient denies any vaginal bleeding or leaking of fluid. The patient reports good movement. Weeks Gestation: 31 Para: 0 : 2 History Obstetric History Obstetric History SAB 1 Past Surgical History Surgical History: No Previous Surgery Family History Family History: Negative Social History Alcohol Use: No Tobacco Use: No Substance Abuse: No Allergies-Medications (Allergen,Severity, Reaction): Coded Allergies: Sulfa (Sulfonamide Antibiotics) (Unverified Allergy, Intermediate, Rash, ) latex (Unverified Allergy, Intermediate, itching, 12/13/17) Home Meds Active Scripts Nitrofurantoin Monohydrate Macrocrystals (Macrobid) 100 Mg Cap, 100 MG PO BID for Infection for 7 Days, #14 CAP 0 Refills Prov:Crow Jones II, MD 12/13/17 Ferrous Sulfate (Ferrous Sulfate) 325 Mg (65 Mg Iron) Tablet, 325 MG PO BIDPC for Nutritional Supplement, #60 TAB 0 Refills Prov:Shama Guerrero MD R2 11/04/17 Promethazine Supp (Phenergan Supp) 25 Mg Supp, 25 MG RECTAL Q6H Y for NAUSEA OR VOMITING, #6 SUPP 0 Refills Prov:Shama Guerrero MD R2 11/04/17 Promethazine (Phenergan) 25 Mg Tablet, 25 MG PO Q6H Y for NAUSEA OR VOMITING, # 120 TAB 1 Refill Prov:Shama Guerrero MD R2 11/04/17 Ondansetron Odt (Zofran Odt) 4 Mg Tab, 4 MG SL Q6HR Y for Nausea/Vomiting, #30 TAB 0 Refills Prov:Jordan Mcdaniel MD 07/12/17 Review of Systems Except as stated in HPI: all other systems reviewed are Neg Physical Exam Narrative GENERAL: Well-nourished, well-developed patient. SKIN: Warm and dry. HEAD: Normocephalic and atraumatic. EYES: No scleral icterus. No injection or drainage. ENT: No nasal drainage noted. Mucous membranes pink. Airway patent. NECK: Supple, trachea midline. No JVD. CARDIOVASCULAR: Regular rate and rhythm without murmurs, gallops, or rubs. RESPIRATORY: Breath sounds equal bilaterally. No accessory muscle use. BREASTS: Deferred ABDOMEN/GI: Abdomen soft, non-tender, bowel sounds present, no rebound, no guarding Gravid GENITOURINARY: External Genitalia: intact and normal in appearance. Physiologic discharge. Grossly normal rugae visible on speculum exam. No cervical or vaginal masses noted. fibronectin was obtained and was positive. SVE 1/thick/high with examination unchanged over observation period of greater than 1.5 hours FHT's: heart tones are in the 130s moderate long-term variability, good accelerations, no decelerations noted. The patient has a category 1 heart rate tracing and reactive NST for gestational age. EXTREMITIES: No cyanosis or edema. BACK: Nontender without obvious deformity. NEUROLOGICAL: Awake and alert. Motor and sensory grossly within normal limits. Five out of 5 muscle strength in all muscle groups. Normal speech. Muscle skeletal: Grossly normal range of motion, gait, muscle strength Psychiatric: Grossly normal memory and affect Data Data Orders Orders Vital Signs (Adult) .ON ADMISSION (12/28/17 16:51) ^ Labor Status (12/28/17 16:51) Urinalysis - C+S If Indicated (12/28/17 16:51) ^ Non Stress Test (12/28/17 16:51) Fibronectin (12/28/17 16:51) MDM Plan Assessment/plan: 1. IUP at 31.1 2. contractions: Contractions resolved with terbutaline 1. The patient has a positive fibronectin but there has been no cervical exchange operator a greater than 1.5 hour observation. Of note the patient is received betamethasone on 12/13/17 and 12/14/17. The patient is given strict labor precautions and pelvic rest. She is to maintain light activity. She was counseled to return for any worsening contractions or concerns of labor. She was counseled that she is already received betamethasone but we would like to utilize magnesium sulfate for neuro protection and further tocolysis if there is evidence of labor. 3. Possible UTI: Will Rx Macrobid 100 mg by mouth twice a day, the patient is given first dose here. Her and cultures pending. Patient was instructed to follow up on the urine culture in 2 days. 4. well-being: The patient had Reassuring testing with a reactive NST and category 1 heart rate tracing. kick counts daily. 5. F/U with primary Ob in 2-3d or sooner if needed Diagnosis Diagnosis: Primary Impression: 31 weeks gestation of Additional Impression: False labor Jeanette Vivas MD Dec 28, 2017 16:53
[2017-12-28 17:12] LABS: BACTERIA, URINE RARE /hpf; BILIRUBIN, URINE NEG (NEG); BLOOD, URINE NEG (NEG); GLUCOSE,URINE NEG (NEG); KETONE, URINE NEG (NEG); MUCUS URINE FEW /lpf (OCC); NITRITE,URINE NEG (NEG); SQUAMOUS EPITHELIAL CELL URINE 7 /hpf (0-5); URINE COLOR YELLOW (YELLW/STRAW); URINE LEUKOCYTE ESTERASE LARGE (NEG)
[2017-12-28] MEDS ORDERED: NITROFURANTOIN MONOHYD MACROCR 100 MG CAP PO ONE (18:30)
[2017-12-28] MEDS ORDERED: TERBUTALINE INJ 1 MG/ML AMP SQ ONE (18:30)
== END 2017-12-28 19:17 | disposition home or self-care (01) ==
LOC: HOBED 15:40
DX: O47.03 False labor before 37 completed weeks of gestation, third trimester (principal); R82.99 Other abnormal findings in urine; Z3A.31 31 weeks gestation of pregnancy
CPT/HCPCS: 81001; 82731; 87086; 96372; 99284; J3105

== ENCOUNTER 2018-01-03 23:57 | Inpatient (IN) | payer OTHER ==
[~2018-01-03] VITALS: Ht 180.3 cm; Wt 62.0 kg
[2018-01-04] VITALS (175 sets, daily range): BP systolic 97–120; BP diastolic 47–78; PULSE 74–108; RESP 15–18; TEMP 97.7–98.7; O2SAT 98–100
--- NOTE | 2018-01-04 01:00 | PD ---
HPI Chief Complaint ctx Date Seen: Jan 04, 2018 Time Seen: 00:53 Travel History International Travel<30 Days: No Contact w/Intl Traveler<30Days: No Known Affected Area: No History of Present Illness HPI 27y/o @ 32.2wks. She has PNC with [facility] Srivastava. She presents c/o ctx q8mins. No LOF/VB. +FM. Pt was seen on 12/12 for ctx. Had a +FFM. Received terbutaline and BMZ on 12/13 and 12/14. Also was dx'd with a UTI and given IV abx and PO macrobid Rx. States that she was compliant. Returned on 12/28 and had a +FFN again and UTI. Rx macrobid. Pt states she complied with them. She reports that she has not had sex recently. Weeks Gestation: 32 Para: 0 : 2 History Past Medical History Medical History: Denies Significant Hx Obstetric History Obstetric History SAB x1 Past Surgical History Surgical History: No Previous Surgery Family History Family History: Negative Social History Alcohol Use: No Tobacco Use: No Substance Abuse: No Allergies-Medications (Allergen,Severity, Reaction): Coded Allergies: Sulfa (Sulfonamide Antibiotics) (Unverified Allergy, Intermediate, Rash, ) latex (Unverified Allergy, Intermediate, itching, 12/13/17) Home Meds Active Scripts Nitrofurantoin Monohydrate Macrocrystals (Macrobid) 100 Mg Cap, 100 MG PO BID for Infection for 7 Days, #14 CAP 0 Refills Prov:Crow Jones II, MD 12/13/17 Ferrous Sulfate (Ferrous Sulfate) 325 Mg (65 Mg Iron) Tablet, 325 MG PO BIDPC for Nutritional Supplement, #60 TAB 0 Refills Prov:Shama Guerrero MD R2 11/04/17 Promethazine Supp (Phenergan Supp) 25 Mg Supp, 25 MG RECTAL Q6H Y for NAUSEA OR VOMITING, #6 SUPP 0 Refills Prov:Shama Guerrero MD R2 11/04/17 Promethazine (Phenergan) 25 Mg Tablet, 25 MG PO Q6H Y for NAUSEA OR VOMITING, # 120 TAB 1 Refill Prov:Shama Guerrero MD R2 11/04/17 Ondansetron Odt (Zofran Odt) 4 Mg Tab, 4 MG SL Q6HR Y for Nausea/Vomiting, #30 TAB 0 Refills Prov:Jordan Mcdaniel MD 07/12/17 Review of Systems Except as stated in HPI: all other systems reviewed are Neg Physical Exam Narrative General: well developed, well nourished, no acute distress HEENT: normocephalic atraumatic, extraocular movements intact, neck supple Abdomen: soft, gravid, nontender, nondistended Extremities: full range of motion Skin: normal coloration, no rashes, no suspicious skin lesions noted Neurologic: cranial nerves 2-12 grossly intact, normal muscle tone, normal gait Psychiatric: normal mood and affect, appropriate FHTs: 135, +accels, no decels, moderate variability, reactive [place]: irritable with occasional ctx Cvx: /-3 Data Data Vital Signs Reviewed: Yes Orders Orders Vital Signs (Adult) .ON ADMISSION (01/04/18 00:48) ^ Labor Status (01/04/18 00:48) Urinalysis - C+S If Indicated (01/04/18 00:48) ^ Non Stress Test (01/04/18 00:48) Fibronectin (01/04/18 00:48) MDM Plan 27y/o @ 32.2wks with threatened PTL. -- FFN sent -- cervix 80/-3 (changed from last week) -- s/p BMZ -- admit to [facility], CEFM/toco Diagnosis Diagnosis: Primary Impression: 32 weeks gestation of Additional Impression: Threatened labor Harsha Christopher MD Jan 04, 2018 01:00
--- NOTE | 2018-01-04 01:13 | HHI.PR ---
[employer] Note Note HPI HPI Chief Complaint ctx Date Seen: Jan 04, 2018 Time Seen: 00:53 Travel History International Travel<30 Days: No Contact w/Intl Traveler<30Days: No Known Affected Area: No History of Present Illness HPI 27y/o @ 32.2wks. She has PNC with [facility] Srivastava. She presents c/o ctx q8mins. No LOF/VB. +FM. Pt was seen on 12/12 for ctx. Had a +FFM. Received terbutaline and BMZ on 12/13 and 12/14. Also was dx'd with a UTI and given IV abx and PO macrobid Rx. States that she was compliant. Returned on 12/28 and had a +FFN again and UTI. Rx macrobid. Pt states she complied with them. She reports that she has not had sex recently. Weeks Gestation: 32 Para: 0 : 2 History (Limited) History Past Medical History Medical History: Denies Significant Hx Obstetric History Obstetric History SAB x1 Past Surgical History Surgical History: No Previous Surgery Family History Family History: Negative Social History Alcohol Use: No Tobacco Use: No Substance Abuse: No Allergies-Medications Allergies-Medications (Allergen,Severity, Reaction): Coded Allergies: Sulfa (Sulfonamide Antibiotics) (Unverified Allergy, Intermediate, Rash, ) latex (Unverified Allergy, Intermediate, itching, 12/13/17) Home Meds Active Scripts Nitrofurantoin Monohydrate Macrocrystals (Macrobid) 100 Mg Cap, 100 MG PO BID for Infection for 7 Days, #14 CAP 0 Refills Prov:Crow Jones II, MD 12/13/17 Ferrous Sulfate (Ferrous Sulfate) 325 Mg (65 Mg Iron) Tablet, 325 MG PO BIDPC for Nutritional Supplement, #60 TAB 0 Refills Prov:Shama Guerrero MD R2 11/04/17 Promethazine Supp (Phenergan Supp) 25 Mg Supp, 25 MG RECTAL Q6H Y for NAUSEA OR VOMITING, #6 SUPP 0 Refills Prov:Shama Guerrero MD R2 11/04/17 Promethazine (Phenergan) 25 Mg Tablet, 25 MG PO Q6H Y for NAUSEA OR VOMITING, # 120 TAB 1 Refill Prov:Shama Guerrero MD R2 11/04/17 Ondansetron Odt (Zofran Odt) 4 Mg Tab, 4 MG SL Q6HR Y for Nausea/Vomiting, #30 TAB 0 Refills Prov:Jordan Mcdaniel MD 07/12/17 ROS Review of Systems Except as stated in HPI: all other systems reviewed are Neg Physical Exam Physical Exam Narrative General: well developed, well nourished, no acute distress HEENT: normocephalic atraumatic, extraocular movements intact, neck supple Abdomen: soft, gravid, nontender, nondistended Extremities: full range of motion Skin: normal coloration, no rashes, no suspicious skin lesions noted Neurologic: cranial nerves 2-12 grossly intact, normal muscle tone, normal gait Psychiatric: normal mood and affect, appropriate FHTs: 135, +accels, no decels, moderate variability, reactive [place]: irritable with occasional ctx Cvx: /-3 Data Data Data Vital Signs Reviewed: Yes Orders Orders Vital Signs (Adult) .ON ADMISSION (01/04/18 00:48) ^ Labor Status (01/04/18 00:48) Urinalysis - C+S If Indicated (01/04/18 00:48) ^ Non Stress Test (01/04/18 00:48) Fibronectin (01/04/18 00:48) MDM MDM Plan 27y/o @ 32.2wks with threatened PTL. -- FFN sent -- cervix 80/-3 (changed from last week) -- s/p BMZ -- admit to [facility], CEFM/toco Diagnosis Diagnosis: Primary Impression: 32 weeks gestation of Additional Impression: Threatened labor Harsha Christopher MD Jan 04, 2018 01:13
[2018-01-04] MEDS ORDERED: ACETAMINOPHEN 325 MG TAB PO PRN (01:15)
[2018-01-04] MEDS ORDERED: ONDANSETRON ODT 4 MG TAB PO PRN (01:15)
[2018-01-04] MEDS ORDERED: SODIUM CHLORIDE 0.9% FLUSH 10 ML FLUSH IV FLUSH PRN ×2 (01:15→10:45)
[2018-01-04] MEDS ORDERED: ZOLPIDEM TARTRATE 5 MG TAB PO PRN (01:15)
[2018-01-04] MEDS ORDERED: ONDANSETRON HCL 4 MG/2 ML VIAL IV PUSH PRN (01:15)
[2018-01-04 01:29] LABS: BACTERIA, URINE RARE /hpf; BILIRUBIN, URINE NEG (NEG); BLOOD, URINE NEG (NEG); GLUCOSE,URINE NEG (NEG); KETONE, URINE NEG (NEG); MUCUS URINE FEW /lpf (OCC); NITRITE,URINE NEG (NEG); PH, URINE 6.5 (5.0-8.5); RENAL EPITHELIAL CELLS 1 /hpf; SQUAMOUS EPITHELIAL CELL URINE 5 /hpf (0-5); TRANSITIONAL EPI CELLS, URINE <1 /hpf; URINE COLOR LIGHT-YELLOW (YELLW/STRAW); URINE LEUKOCYTE ESTERASE LARGE (NEG)
[2018-01-04 02:03] LABS: BASOPHIL % 0.3 % (0.0-2.0); EOSINOPHIL # 0.4 TH/MM3 (0-0.4); EOSINOPHIL % 5.4 % (0.0-4.0); HEMATOCRIT 29.6 % (35.0-46.0); HEMOGLOBIN 9.8 GM/DL (11.6-15.3); LYMPH % 20.3 % (9.0-44.0); LYMPHOCYTE # 1.5 TH/MM3 (1.0-4.8); MEAN CELL VOLUME 77.9 FL (80.0-100.0); MEAN CORPUSCULAR HEMOGLOBIN 25.9 PG (27.0-34.0); MEAN CORPUSCULAR HGB CONC 33.3 % (32.0-36.0); MEAN PLATELET VOLUME 8.9 FL (7.0-11.0); MONO % 7.3 % (0.0-8.0); MONOCYTE # 0.6 TH/MM3 (0-0.9); NEUT % 66.7 % (16.0-70.0); PLATELET COUNT 180 TH/MM3 (150-450); RED CELL DISTRIBUTION WIDTH 16.1 % (11.6-17.2); WHITE BLOOD COUNT 7.6 TH/MM3 (4.0-11.0)
[2018-01-04] MEDS ORDERED: LACTATED RINGER'S 1000 ML INJ 500 ML IV ONE (04:00)
--- NOTE | 2018-01-04 08:41 | PD.OB.ANTE ---
Subjective Interval History 27 y/o at 32/2 weeks admitted for pre-term labor. States she had some vaginal bleeding after the cervical check last night. Endorses regular contractions and movement. Denies any new other concerns this morning. Denies any headaches, blurry vision, dysuria, leg pain/swelling. Antepartum ROS: Reports: Vaginal bleeding (after vaginal exam), movement normal, Contractions, Denies: Loss of fluid, Other Objective Vital Signs Vital Signs Date Time Temp Pulse Resp B/P (MAP) Pulse Ox O2 Delivery O2 Flow Rate FiO2 01/04/18 07:30 17 01/04/18 06:00 74 01/04/18 06:00 98.0 18 01/04/18 06:00 109/63 (78) 01/04/18 03:55 18 01/04/18 03:54 97.7 87 107/61 (76) 01/04/18 01:41 82 103/68 (80) 01/04/18 01:40 97.7 18 Intake & Output 01/04/18 01/04/18 07:00 19:00 Intake Total 500 ml Balance 500 ml Intake IV Total 500 ml Lab & Micro Results Test 01/04/18 00:50 01/04/18 00:59 01/04/18 01:54 Urine Color LIGHT-YELLOW Urine Turbidity CLEAR Urine pH 6.5 Urine Specific [place] 1.011 Urine Protein NEG mg/dL Urine Glucose (UA) NEG mg/dL Urine Ketones NEG mg/dL Urine Occult Blood NEG Urine Nitrite NEG Urine Bilirubin NEG Urine Urobilinogen LESS THAN 2.0 MG/DL Urine Leukocyte Esterase LARGE Urine RBC 1 /hpf Urine WBC 8 /hpf Urine Squamous Epithelial Cells 5 /hpf Urine Transitional Epithelial Cells <1 /hpf Urine Renal Epithelial Cells 1 /hpf Urine Bacteria RARE /hpf Urine Mucus FEW /lpf Microscopic Urinalysis Comment CULT NOT INDICATED Urine Opiates Screen NEG Urine Barbiturates Screen NEG Urine Amphetamines Screen NEG Urine Benzodiazepines Screen NEG Urine Cocaine Screen NEG Urine Cannabinoids Screen NEG Fibronectin POSITIVE White Blood Count 7.6 TH/MM3 Red Blood Count 3.80 MIL/MM3 Hemoglobin 9.8 GM/DL Hematocrit 29.6 % Mean Corpuscular Volume 77.9 FL Mean Corpuscular Hemoglobin 25.9 PG Mean Corpuscular Hemoglobin Concent 33.3 % Red Cell Distribution Width 16.1 % Platelet Count 180 TH/MM3 Mean Platelet Volume 8.9 FL Neutrophils (%) (Auto) 66.7 % Lymphocytes (%) (Auto) 20.3 % Monocytes (%) (Auto) 7.3 % Eosinophils (%) (Auto) 5.4 % Basophils (%) (Auto) 0.3 % Neutrophils # (Auto) 5.0 TH/MM3 Lymphocytes # (Auto) 1.5 TH/MM3 Monocytes # (Auto) 0.6 TH/MM3 Eosinophils # (Auto) 0.4 TH/MM3 Basophils # (Auto) 0.0 TH/MM3 CBC Comment DIFF FINAL Differential Comment Physical Exam GENERAL: Well-nourished, well-developed patient. CARDIOVASCULAR: Regular rate and rhythm without murmurs, gallops, or rubs. RESPIRATORY: Breath sounds equal bilaterally. No accessory muscle use. ABDOMEN/GI: Abdomen soft, non-tender. Gravid to 32 weeks GENITOURINARY: FHT's: Category: 1 Baseline: 140 Reactive: yes Variability: moderate Decels: none EXTREMITIES: No cyanosis or edema, non-tender, without signs of DVT. Assessment and Plan Problem List: (1) Threatened labor ICD Codes: O47.00 - False labor before 37 completed weeks of gestation, unspecified trimester Status: Acute Qualifiers: Qualified Codes: O47.03 - False labor before 37 completed weeks of gestation , third trimester (2) 32 weeks gestation of ICD Codes: Z3A.32 - 32 weeks gestation of Status: Acute Assessment and Plan 27y/o @ 32.2wks with threatened PTL. FFN positive cervix /-3 from yesterday s/p BMZ -Continuous FHT -Start Mg infusion, monitor for toxicity -Monitor for other signs of PTL Eleuterio Cody MD Jan 04, 2018 08:41
[2018-01-04] MEDS ORDERED: SODIUM CHLORIDE 0.9% FLUSH 10 ML FLUSH IV FLUSH SCH (09:00)
[2018-01-04] MEDS: LACTATED RINGER'S 1000 ML INJ 1,000 ML IV SCH (10:35)
[2018-01-04] MEDS ORDERED: CALCIUM GLUCONATE 10% 1 GM/10 ML VIAL IV PUSH PRN (10:45)
[2018-01-04] MEDS ORDERED: MAGNESIUM SULFATE 4 GM PREMIX 100 ML IV ONE (10:45)
[2018-01-04] MEDS: MAGNESIUM SULFATE 40 GM PREMIX 1,000 ML IV SCH (11:01)
[2018-01-04] MEDS: SODIUM CHLORIDE 0.9% FLUSH 10 ML FLUSH IV FLUSH SCH (21:00)
[2018-01-05] VITALS (259 sets, daily range): BP systolic 93–123; BP diastolic 47–74; PULSE 79–121; RESP 15–20; TEMP 97.9–98.8; O2SAT 97–100
[2018-01-05] MEDS: LACTATED RINGER'S 1000 ML INJ 1,000 ML IV SCH ×2 (02:00→17:38)
[2018-01-05] MEDS: MAGNESIUM SULFATE 40 GM PREMIX 1,000 ML IV SCH ×2 (03:20→20:20)
--- NOTE | 2018-01-05 06:50 | PD.OB.ANTE ---
Subjective Diagnosis: (1) Threatened labor Diagnosis: Principal (2) 32 weeks gestation of Interval History Patient is 32-1/2 week intrauterine with the labor. Pts history positive fibronectin on multiple occasions. She's had the betamethasone injections . 24 hours ago the patient was trip vigorously large painful contractions every 2-3 minutes, her cervix is 1 cm 80% -2 vertex and is been no change in her cervix is still the same, however exam sulfate was started IV for tocolyse this because the contraction pattern was so prominent and with magnesium contractions decreased spaced out became irregular for quite some time. However they continued so that we had to go to magnesium 2-1/2 g an hour and eventually 3 g an hour Magette 3 g an hour magnesium level was done and showed a level of 8.2 which is above the therapeutic range [4- 7] and in the magnesium was back down to 2-1/2 g an hour and that's where it is at this time. She is continued to contract very small amplitude frequent contractions that she is barely feeling, and as said prior cervix has remained same. heart rate tracing remained reactive Antepartum ROS: Reports: Contractions Objective Vital Signs Vital Signs Date Time Temp Pulse Resp B/P (MAP) Pulse Ox O2 Delivery O2 Flow Rate FiO2 01/05/18 06:25 89 99 2/18 06:20 89 100 2/18 06:15 90 100 2/18 06:10 89 100 2/18 06:05 89 100 2/18 06:00 91 111/66 (81) 99 18 05:20 94 100 2/18 05:15 90 100 2/18 05:10 91 100 2//18 05:05 91 100 2//18 05:00 92 2//18 05:00 92 112/69 (83) 100 2/18 05:00 98.0 16 218 04:55 94 100 2/18 04:50 91 100 2//18 04:45 92 100 2//18 04:40 90 100 2/18 04:35 92 100 2//18 04:30 92 100 2/18 04:25 91 100 2/18 04:20 92 100 2//18 04:15 90 100 2/6/18 04:10 91 100 2/6/18 04:05 90 100 2/6/18 04:00 18 2/6/18 04:00 89 2/6/18 04:00 89 105/62 (76) 100 2/6/18 03:55 91 100 2/6/18 03:50 93 100 2/6/18 03:45 90 100 2/6/18 03:40 93 100 2/6/18 03:35 91 100 2/6/18 03:30 93 100 2/6/18 03:25 91 100 2/6/18 03:20 92 100 2/6/18 03:15 97 100 2/6/18 03:10 90 100 2/6/18 03:05 90 100 2/6/18 03:00 89 2/6/18 03:00 89 112/68 (83) 100 2/6/18 02:55 90 100 2/6/18 02:50 88 100 2/6/18 02:45 89 100 2/6/18 02:40 91 100 2/6/18 02:35 90 100 2/6/18 02:30 88 100 2/6/18 02:25 91 100 2/6/18 02:20 88 100 2/6/18 02:15 90 100 2/6/18 02:10 89 100 2/6/18 02:05 87 100 2/6/18 02:00 16 2/6/18 02:00 88 2/6/18 02:00 89 18 110/68 (82) 100 2/6/18 01:55 87 100 2/6/18 01:50 86 100 2/6/18 01:45 89 100 2/6/18 01:40 93 100 2/6/18 01:35 88 100 2/6/18 01:30 88 100 2/6/18 01:25 87 100 2/6/18 01:20 87 99 2/6/18 01:15 87 100 2/6/18 01:10 90 99 2/6/18 01:05 88 100 2/6/18 01:00 89 112/68 (83) 100 2/6/18 01:00 20 2/6/18 00:55 88 100 2/6/18 00:50 89 99 2/6/18 00:45 87 100 2/6/18 00:40 88 99 2/6/18 00:35 88 100 2/6/18 00:30 87 100 2/6/18 00:25 86 100 2/6/18 00:20 86 100 2/6/18 00:15 89 99 2/6/18 00:10 93 100 2/6/18 00:05 87 99 2/6/18 00:00 15 2/6/18 00:00 87 110/69 (83) 100 2/5/18 23:55 86 99 2/5/18 23:50 90 99 2/5/18 23:45 88 99 2/5/18 23:40 87 99 2/5/18 23:35 87 99 2/5/18 23:30 86 99 2/5/18 23:25 87 99 2/5/18 23:20 85 99 2/5/18 23:15 89 100 2/5/18 23:10 89 99 2/5/18 23:05 86 99 2/5/18 23:00 15 2//18 23:00 86 2//18 23:00 86 109/65 (80) 99 2/5/18 23:00 97.7 2/5/18 22:55 87 99 2/5/18 22:50 86 99 2/5/18 22:45 84 99 2/5/18 22:40 84 98 2/5/18 22:35 83 99 2/5/18 22:30 86 100 2/5/18 22:25 86 100 2/5/18 22:20 83 99 2/5/18 22:15 85 99 2/5/18 22:10 84 99 2/5/18 22:05 85 99 2/5/18 22:00 16 2/5/18 22:00 85 114/70 (85) 99 2/5/18 21:55 85 99 2/5/18 21:50 85 100 2/5/18 21:45 84 100 2/5/18 21:40 84 100 2/5/18 21:35 82 99 2/5/18 21:30 87 99 2/5/18 21:25 88 99 2/5/18 21:20 92 99 2/5/18 21:15 88 99 2/5/18 21:10 86 99 2/5/18 21:05 88 99 2/5/18 21:00 87 2/5/18 21:00 16 2/5/18 21:00 104/61 (75) 99 2/5/18 20:55 93 99 2/5/18 20:50 87 99 2/5/18 20:45 85 99 2/5/18 20:40 86 99 2/5/18 20:35 87 100 2/5/18 20:30 86 112/63 (79) 100 2/5/18 20:25 89 100 2/5/18 20:20 86 100 2/5/18 20:15 88 100 2/5/18 20:14 87 103/60 (74) 2/5/18 20:10 88 100 2/5/18 20:05 84 100 2/5/18 20:00 86 100 2/5/18 19:45 85 100 2/5/18 19:40 89 99 2/5/18 19:35 87 100 2/5/18 19:33 97/48 (64) 2//18 19:30 87 100 2/5/18 19:30 87 2/5/18 19:25 86 100 2/5/18 19:22 97.8 2/5/18 19:22 18 2//18 19:20 92 100 2/5/18 19:15 88 100 2/5/18 19:10 88 100 2/5/18 19:05 90 100 2/5/18 19:00 89 105/47 (66) 100 2/5/18 18:56 17 2/5/18 18:55 96 100 2/5/18 18:50 90 100 2/5/18 18:45 89 100 2/5/18 18:40 93 100 2/5/18 18:35 94 100 2/5/18 18:30 91 110/68 (82) 99 2/5/18 18:25 91 99 2/5/18 18:20 93 99 2/5/18 18:15 93 99 2/5/18 18:10 92 99 2/5/18 18:05 94 99 2/5/18 18:00 93 116/68 (84) 100 2/5/18 17:55 92 99 2/5/18 17:50 93 99 2/5/18 17:45 93 99 2/5/18 17:40 90 99 2/5/18 17:35 93 99 2/5/18 17:30 94 112/64 (80) 99 2/5/18 17:25 97 100 2/5/18 17:20 94 100 2/5/18 17:19 17 2/5/18 17:15 94 100 2/5/18 17:10 96 100 2/5/18 17:05 96 100 2/5/18 17:00 18 2/5/18 17:00 100 2/5/18 17:00 103 118/71 (87) 2/5/18 16:55 96 100 2/5/18 16:50 103 100 2/5/18 16:45 98 100 2/5/18 16:40 97 100 2/5/18 16:35 96 100 2/5/18 16:30 96 118/78 (91) 100 2/5/18 16:25 93 100 2/5/18 16:20 93 100 2/5/18 16:15 95 100 2/5/18 16:10 100 100 2/5/18 16:05 108 100 2/5/18 16:00 116/71 (86) 99 2/5/18 16:00 92 2/5/18 16:00 97.9 2/5/18 15:55 100 100 2/5/18 15:50 96 99 2/5/18 15:45 96 99 2/5/18 15:40 96 99 2/5/18 15:40 17 2/5/18 15:35 94 99 2/5/18 15:30 113/70 (84) 2/5/18 15:30 92 2/5/18 15:30 99 2/5/18 15:25 95 2/5/18 15:25 99 2/5/18 15:20 95 2/5/18 15:20 99 2/5/18 15:15 93 99 2/5/18 15:10 90 99 2/5/18 15:05 90 99 2/5/18 15:00 91 2/5/18 15:00 89 113/73 (86) 99 2/5/18 14:55 91 2/5/18 14:55 99 2/5/18 14:50 99 2/5/18 14:50 88 2/5/18 14:45 87 2/5/18 14:45 99 2/5/18 14:40 93 99 2/5/18 14:35 87 99 2/5/18 14:31 89 120/67 (84) 2/5/18 14:30 91 99 2/5/18 14:25 94 100 2/5/18 14:20 98 100 2/5/18 14:15 91 100 2/5/18 14:10 98 100 2/5/18 14:05 94 100 2/5/18 14:00 18 2/5/18 14:00 91 97/53 (68) 100 2/5/18 14:00 92 2/5/18 13:55 100 100 2/5/18 13:50 99 100 2/5/18 13:45 103 100 2/5/18 13:40 105 98 2/5/18 13:35 95 99 2/5/18 13:30 90 2/5/18 13:30 89 104/60 (75) 99 2/5/18 13:25 96 100 2/5/18 13:20 87 100 2/5/18 13:15 86 2/5/18 13:15 100 2/5/18 13:10 100 2/5/18 13:10 89 2/5/18 13:05 100 2/5/18 13:05 86 2/5/18 13:00 89 110/68 (82) 2/5/18 12:50 100 2/5/18 12:50 89 2/5/18 12:45 100 2/5/18 12:45 92 2/5/18 12:40 82 2/5/18 12:40 100 2/5/18 12:35 88 2/5/18 12:35 100 2/5/18 12:30 100 2/5/18 12:30 83 112/65 (81) 2/5/18 12:25 78 2/5/18 12:25 100 2/5/18 12:20 100 2/5/18 12:20 90 2/5/18 12:15 100 2/5/18 12:15 81 2/5/18 12:14 18 2/5/18 12:10 100 2/5/18 12:10 93 2/5/18 12:05 89 2 12:05 99 01/04/18 12:00 99 01/04/18 12:00 91 106/49 (68) 01/04/18 11:59 17 01/04/18 11:55 99 01/04/18 11:55 88 01/04/18 11:50 99 01/04/18 11:50 92 01/04/18 11:45 86 18 01/04/18 11:45 99 01/04/18 11:40 99 01/04/18 11:40 90 01/04/18 11:35 99 01/04/18 11:35 86 01/04/18 11:30 87 119/69 (86) 01/04/18 11:30 99 01/04/18 11:25 91 01/04/18 11:20 90 01/04/18 11:15 97 111/62 (78) 01/04/18 11:15 90 01/04/18 11:10 94 107/63 (78) 01/04/18 11:06 17 01/04/18 11:05 96 111/65 (80) 01/04/18 11:01 98 118/67 (84) 01/04/18 11:00 17 01/04/18 11:00 98.7 01/04/18 11:00 86 01/04/18 10:52 85 110/60 (77) 01/04/18 10:45 18 01/04/18 10:00 17 01/04/18 08:45 97.8 01/04/18 08:38 18 01/04/18 08:37 78 108/66 (80) 01/04/18 07:30 17 Lab & Micro Results Test 01/04/18 22:25 Magnesium Level 8.2 MG/DL Physical Exam GENERAL: Well-nourished, well-developed patient. CARDIOVASCULAR: Regular rate and rhythm without murmurs, gallops, or rubs. RESPIRATORY: Breath sounds equal bilaterally. No accessory muscle use. ABDOMEN/GI: Abdomen soft, non-tender. Fundus: [-] GENITOURINARY: External Genitalia: intact and normal in appearance Cervix: [Anterior-] Dilatation: [-1] Effacement: [-80-90] Station: [-2] Presentation: [vtx-] Membranes: [-Intact] Uterine Contractions: [Every 2 minutes small amplitude frequent contractions/ uterine irritability-] FHT's: Category: [1-] Baseline: [-133] Reactive: [R-] Variability: [mod-] Decels: [none-] EXTREMITIES: No cyanosis or edema, non-tender, without signs of DVT. Assessment and Plan Problem List: (1) Threatened labor ICD Codes: O47.00 - False labor before 37 completed weeks of gestation, unspecified trimester Status: Acute Qualifiers: Qualified Codes: O47.03 - False labor before 37 completed weeks of gestation , third trimester (2) 32 weeks gestation of ICD Codes: Z3A.32 - 32 weeks gestation of Status: Acute Assessment and Plan 27y/o @ 32.2wks with threatened PTL. FFN positive cervix /-3 from yesterday and today s/p BMZ -Continuous FHT -Start Mg infusion, monitor for toxicity -Monitor for other signs of PTL Crow Jones II, MD Jan 05, 2018 06:50
[2018-01-05] MEDS ORDERED: PENICILLIN G POTASSIUM INJ 5,000,000 UNITS in SODIUM CHLORIDE 0.9% INJ 100 ML IV ONE (12:45)
--- NOTE | 2018-01-05 13:00 | HHI.PR ---
Subjective Remarks OB[facility] 27-year-old 020, IUP at 32.3 Subjective: Patient feels sleepy from the medication Oh: VSS AF FHT: heart rate baseline in the 120s with moderate long-term variability, good accelerations, no decelerations noted SVE: Deferred [place]: Irregular contractions with irritability noted in between Assessment/plan: 1. IUP at 32.3 2. labor: Discussed case with Dr. Orourke. He recommended that since the patient had her course of betamethasone at 29 weeks we repeat a rescue course of steroids now at 32 weeks for an additional 2 injections. He also recommended we continue magnesium sulfate until the patient receives her second injection of betamethasone, but recommended discontinuing the magnesium sulfate after the patient receives her second injection. I discussed that the patient had initially been on 3 g per hour of magnesium sulfate, then dropped to 2.5 g/h , and now I have decreased her to 2 g per hour. He agreed with this dosage. He also recommended GBS prophylaxis as has been ordered. GBS culture pending. Discussed with the patient who is in agreement with the plan at this time. 3. well-being: Reassuring testing with FHR that is appropriate for gestational age and reassuring. 4. Prematurity: As above betamethasone, GBS prophylaxis, and we'll order NICU consult. 5. Patient comfort: Will allow the patient ate lunch, and go medial by medial based on contraction pattern and patient symptoms. Objective Vital Signs Date Time Temp Pulse Resp B/P (MAP) Pulse Ox O2 Delivery O2 Flow Rate FiO2 01/05/18 12:00 97.9 16 01/05/18 11:55 98 01/05/18 11:50 98 01/05/18 11:45 98 01/05/18 11:40 98 01/05/18 11:35 98 01/05/18 11:30 89 01/05/18 11:30 98 01/05/18 11:25 89 01/05/18 11:25 99 01/05/18 11:20 90 99 01/05/18 11:15 91 99 01/05/18 11:10 97 98 01/05/18 11:05 91 99 01/05/18 11:00 91 93/47 (62) 98 01/05/18 11:00 18 2/6/18 10:55 92 98 2/6/18 10:50 90 99 2/6/18 10:45 90 98 2/6/18 10:40 88 98 2/6/18 10:35 91 99 2/6/18 10:30 89 98 2/6/18 10:25 92 98 2/6/18 10:20 89 98 2/6/18 10:15 88 98 2/6/18 10:10 89 97 2/6/18 10:05 89 98 2/6/18 10:00 90 96/52 (67) 98 2/6/18 09:55 89 99 2/6/18 09:50 90 98 2/6/18 09:45 89 98 2/6/18 09:40 88 98 2/6/18 09:35 90 98 2/6/18 09:30 90 99 2/6/18 09:25 90 98 2/6/18 09:20 90 98 2/6/18 09:15 90 98 2/6/18 09:10 91 98 2/6/18 09:05 90 98 2/6/18 09:00 16 2/6/18 09:00 92 99/52 (68) 97 2/6/18 08:55 90 97 2/6/18 08:50 89 98 2/6/18 08:45 91 97 2/6/18 08:40 90 97 2/6/18 08:35 91 97 2/6/18 08:30 93 97 2/6/18 08:25 103 97 2/6/18 08:20 121 100 2/6/18 08:15 95 100 2/6/18 08:10 91 99 2/6/18 08:05 88 99 2/6/18 08:00 98.8 2/6/18 08:00 16 2/6/18 08:00 90 109/62 (78) 99 2/6/18 08:00 91 2/6/18 07:55 93 98 2/6/18 07:50 92 99 2/6/18 07:45 92 99 2/6/18 07:40 92 98 2/6/18 07:35 92 98 2/6/18 07:30 92 99 2/6/18 07:25 90 99 2/6/18 07:20 89 99 2/6/18 07:15 88 99 2/6/18 07:10 89 99 2/6/18 07:05 88 99 2/6/18 07:00 87 110/66 (81) 99 2/6/18 06:55 87 99 2/6/18 06:50 94 100 2/6/18 06:45 90 99 2/6/18 06:42 16 2/6/18 06:40 93 99 2/6/18 06:35 89 99 2/6/18 06:30 89 99 2/6/18 06:25 89 99 2/6/18 06:20 89 100 2/6/18 06:15 90 100 2/6/18 06:10 89 100 2/6/18 06:05 89 100 2/6/18 06:00 89 2/6/18 06:00 91 111/66 (81) 99 2/6/18 06:00 18 2/6/18 05:55 91 99 2/6/18 05:50 90 99 2/6/18 05:45 90 100 2/6/18 05:40 100 2/6/18 05:40 90 2/6/18 05:35 100 2/6/18 05:35 89 2/6/18 05:30 89 2/6/18 05:30 100 2/6/18 05:25 91 2/6/18 05:25 100 2/6/18 05:20 94 100 2/6/18 05:15 90 100 2/6/18 05:10 91 100 2/6/18 05:05 91 100 2/6/18 05:00 92 2/6/18 05:00 92 112/69 (83) 100 2/6/18 05:00 98.0 16 2/6/18 04:55 94 100 2/6/18 04:50 91 100 2/6/18 04:45 92 100 2/6/18 04:40 90 100 2/6/18 04:35 92 100 2/6/18 04:30 92 100 2/6/18 04:25 91 100 2/6/18 04:20 92 100 2/6/18 04:15 90 100 2/6/18 04:10 91 100 2/6/18 04:05 90 100 2/6/18 04:00 18 2/6/18 04:00 89 2/6/18 04:00 89 105/62 (76) 100 2/6/18 03:55 91 100 2/6/18 03:50 93 100 2/6/18 03:45 90 100 2/6/18 03:40 93 100 2/6/18 03:35 91 100 2/6/18 03:30 93 100 2/6/18 03:25 91 100 2/6/18 03:20 92 100 2/6/18 03:15 97 100 2/6/18 03:10 90 100 2/6/18 03:05 90 100 2/6/18 03:00 89 2/6/18 03:00 89 112/68 (83) 100 2/6/18 02:55 90 100 2/6/18 02:50 88 100 2/6/18 02:45 89 100 2/6/18 02:40 91 100 2/6/18 02:35 90 100 2/6/18 02:30 88 100 2/6/18 02:25 91 100 2/6/18 02:20 88 100 2/6/18 02:15 90 100 2/6/18 02:10 89 100 2/6/18 02:05 87 100 2/6/18 02:00 16 2/6/18 02:00 88 2/6/18 02:00 89 18 110/68 (82) 100 2/6/18 01:55 87 100 2/6/18 01:50 86 100 2/6/18 01:45 89 100 2/6/18 01:40 93 100 2/6/18 01:35 88 100 2/6/18 01:30 88 100 2/6/18 01:25 87 100 2/6/18 01:20 87 99 2/6/18 01:15 87 100 2/6/18 01:10 90 99 2/6/18 01:05 88 100 2/6/18 01:00 89 112/68 (83) 100 2/6/18 01:00 20 2/6/18 00:55 88 100 2/6/18 00:50 89 99 2/6/18 00:45 87 100 2/6/18 00:40 88 99 2/6/18 00:35 88 100 2/6/18 00:30 87 100 2/6/18 00:25 86 100 2/6/18 00:20 86 100 2/6/18 00:15 89 99 2/6/18 00:10 93 100 2/6/18 00:05 87 99 2/6/18 00:00 15 2/6/18 00:00 87 110/69 (83) 100 2/5/18 23:55 86 99 2/5/18 23:50 90 99 2/5/18 23:45 88 99 2/5/18 23:40 87 99 2/5/18 23:35 87 99 2/5/18 23:30 86 99 2/5/18 23:25 87 99 2/5/18 23:20 85 99 2/5/18 23:15 89 100 2/5/18 23:10 89 99 2/5/18 23:05 86 99 2/5/18 23:00 15 2/5/18 23:00 86 2/5/18 23:00 86 109/65 (80) 99 2/5/18 23:00 97.7 2/5/18 22:55 87 99 2/5/18 22:50 86 99 2/5/18 22:45 84 99 2/5/18 22:40 84 98 2/5/18 22:35 83 99 2/5/18 22:30 86 100 2/5/18 22:25 86 100 2/5/18 22:20 83 99 2/5/18 22:15 85 99 2/5/18 22:10 84 99 2/5/18 22:05 85 99 2/5/18 22:00 16 2/5/18 22:00 85 114/70 (85) 99 2/5/18 21:55 85 99 2/5/18 21:50 85 100 2/5/18 21:45 84 100 2/5/18 21:40 84 100 2/5/18 21:35 82 99 2/5/18 21:30 87 99 2/5/18 21:25 88 99 2/5/18 21:20 92 99 2/5/18 21:15 88 99 2/5/18 21:10 86 99 2/5/18 21:05 88 99 2/5/18 21:00 87 2/5/18 21:00 16 2/5/18 21:00 104/61 (75) 99 2/5/18 20:55 93 99 2/5/18 20:50 87 99 2/5/18 20:45 85 99 2/5/18 20:40 86 99 2/5/18 20:35 87 100 2/5/18 20:30 86 112/63 (79) 100 2/5/18 20:25 89 100 2/5/18 20:20 86 100 2/5/18 20:15 88 100 2/5/18 20:14 87 103/60 (74) 2/5/18 20:10 88 100 2/5/18 20:05 84 100 2/5/18 20:00 86 100 2/5/18 19:45 85 100 2/5/18 19:40 89 99 2/5/18 19:35 87 100 2/5/18 19:33 97/48 (64) 2/5/18 19:30 87 100 2/5/18 19:30 87 2/5/18 19:25 86 100 2/5/18 19:22 97.8 2//18 19:22 18 2//18 19:20 92 100 2/5/18 19:15 88 100 2/5/18 19:10 88 100 2/5/18 19:05 90 100 2/5/18 19:00 89 105/47 (66) 100 2/5/18 18:56 17 2/5/18 18:55 96 100 2/5/18 18:50 90 100 2/5/18 18:45 89 100 2/5/18 18:40 93 100 2/5/18 18:35 94 100 2/5/18 18:30 91 110/68 (82) 99 2/5/18 18:25 91 99 2/5/18 18:20 93 99 2/5/18 18:15 93 99 2/5/18 18:10 92 99 2/5/18 18:05 94 99 2/5/18 18:00 93 116/68 (84) 100 2/5/18 17:55 92 99 2/5/18 17:50 93 99 2/5/18 17:45 93 99 2/5/18 17:40 90 99 2/5/18 17:35 93 99 2/5/18 17:30 94 112/64 (80) 99 2/5/18 17:25 97 100 2/5/18 17:20 94 100 2/5/18 17:19 17 2/5/18 17:15 94 100 2/5/18 17:10 96 100 2/5/18 17:05 96 100 2/5/18 17:00 18 2/5/18 17:00 100 2/5/18 17:00 103 118/71 (87) 2/5/18 16:55 96 100 2/5/18 16:50 103 100 2/5/18 16:45 98 100 2/5/18 16:40 97 100 2/5/18 16:35 96 100 2/5/18 16:30 96 118/78 (91) 100 2/5/18 16:25 93 100 2/5/18 16:20 93 100 2/5/18 16:15 95 100 2/5/18 16:10 100 100 2/5/18 16:05 108 100 2/5/18 16:00 116/71 (86) 99 2/5/18 16:00 92 2/5/18 16:00 97.9 2/5/18 15:55 100 100 2/5/18 15:50 96 99 2/5/18 15:45 96 99 2/5/18 15:40 96 99 2/5/18 15:40 17 2/5/18 15:35 94 99 2/5/18 15:30 113/70 (84) 2/5/18 15:30 92 2/5/18 15:30 99 2/5/18 15:25 95 2/5/18 15:25 99 2/5/18 15:20 95 2/5/18 15:20 99 2/5/18 15:15 93 99 2/5/18 15:10 90 99 2/5/18 15:05 90 99 2/5/18 15:00 91 2/5/18 15:00 89 113/73 (86) 99 2/5/18 14:55 91 2/5/18 14:55 99 2/5/18 14:50 99 2/5/18 14:50 88 2/5/18 14:45 87 2/5/18 14:45 99 2/5/18 14:40 93 99 2/5/18 14:35 87 99 2/5/18 14:31 89 120/67 (84) 2//18 14:30 91 99 2/5/18 14:25 94 100 2/5/18 14:20 98 100 2/5/18 14:15 91 100 2//18 14:10 98 100 2//18 14:05 94 100 2/5/18 14:00 18 2//18 14:00 91 97/53 (68) 100 2//18 14:00 92 2//18 13:55 100 100 2//18 13:50 99 100 2//18 13:45 103 100 2//18 13:40 105 98 2//18 13:35 95 99 2//18 13:30 90 2//18 13:30 89 104/60 (75) 99 2// 13:25 96 100 2//18 13:20 87 100 2//18 13:15 86 2//18 13:15 100 2//18 13:10 100 2//18 13:10 89 /04/16 13:05 100 2//18 13:05 86 2//18 13:00 89 110/68 (82) I/O 2/18 2//18 2//18 2//18 2//18 2//18 07:00 15:00 23:00 07:00 15:00 23:00 Intake Total 500 ml Balance 500 ml Intake IV Total 500 ml Result Diagram: 01/04/18 0154 Jeanette Vivas MD Jan 05, 2018 13:00
[2018-01-05] MEDS: BETAMETHASONE SOD PHOS/ACETATE SUSP 30 MG/5 ML VIAL IM SCH (14:00)
--- NOTE | 2018-01-05 17:26 | HHI.PCNN ---
Addendum Remarks Consult Maternal Hx: 27y/o, , female at 32.3 weeks gestation with diagnosis of PTL and recurrent UTI. Mother admitted to [facility] on 01/04/18 secondary to contractions. No recent ultrasounds noted in chart or available per MD/RN. Maternal Labs: Blood type: not available, Rubella immune, RPR non-reactive, Hepatitis B non- reactive, HIV non-reactive, GC negative, CZ negative, GBS pending Maternal Medications: Magnesium BMS (12/13 & 12/04) with rescue course planned for 01/05 & 01/06 Penicillin Social: Marital status: single with FOB involved Family Hx: This is first baby for MOB. Maternal grandmother was recently with twins and had PTL. Children are now 3 and doing well. Substance Abuse: Denies. Admission UDS negative. 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 Mom was told that survival was very high with generally good outcomes. Mom was informed that infant may need assistance with breathing to include CPAP/oxygen with potential need for a breathing tube. may also require surfactant which can be given via endotracheal tube or by the LUPE method. Mom has received steroids and is currently receiving a rescue course of betamethasone. Mom was told that infant will initially need a PIV for IVF administration but that enteral feeds would be started soon after and given via NG tube until is ready to orally feed. Mom desires to breastfeed and was told to start pumping as soon as possible after delivery (ideally within 1h). Mom was educated that infants usually start to be able bottle feed around 34 weeks gestation. Mom was also informed that her baby may require a rule out course of antibiotics but that the need would be assessed by the team at her delivery. Jaundice was discussed and the potential need for phototherapy. Mom was encouraged to visit her baby as much as possible in the NICU. She was made aware of the NICU open visitation policy, multidisciplinary rounds daily at 10:00 AM, and other support services available such as support, case management, and pin cleaner services. Mom verbalized understanding of our conversation and asked appropriate questions. Dad was not present for the conversation but mom was encouraged to request a subsequent visit from the neonatology team should she or dad have any other questions that arise. Thank you for this consult. . Greater than 50% of the consultation time was spent with the patient. Fe Odom Jan 05, 2018 17:26
[2018-01-05] MEDS: PENICILLIN G POTASSIUM INJ 2,500,000 UNITS in SODIUM CHLORIDE 0.9% INJ 100 ML IV SCH ×2 (17:35→21:57)
[2018-01-05] MEDS: SODIUM CHLORIDE 0.9% FLUSH 10 ML FLUSH IV FLUSH SCH (21:00)
[2018-01-06] VITALS (162 sets, daily range): BP systolic 100–124; BP diastolic 55–71; PULSE 72–107; RESP 16–18; TEMP 97.3–99.1; O2SAT 96–100
--- NOTE | 2018-01-06 01:10 | HHI.PR ---
Subjective Remarks [facility] 27-year-old 020, IUP at 32.4 Subjective: Patient feels better since mag decreased to 2g/hr. O: VSS AF FHT: heart rate baseline in the 120s with moderate long-term variability, good accelerations, no decelerations noted SVE: Deferred [place]: Irregular contractions with irritability noted in between Assessment/plan: 1. IUP at 32.3 2. labor: Discussed case with Dr. Orourke yesterday. Will continue plan as recommended with rescue course of celestone, continue magnesium sulfate at 2g/hr, then d/c magnesium sulfate after next does of celestone. Continye GBS prophylaxis until GBS culture results. Rediscussed the plan with the patient who is in agreement with the plan at this time. 3. well-being: Reassuring testing with FHR that is appropriate for gestational age and reassuring. 4. Prematurity: As above betamethasone, GBS prophylaxis, NICU consult performed 5. Patient comfort: will continue to allow meal by meal regular diet based on contraction pattern and patient symptoms, lidocaine gel for sapp discomfort Objective Vital Signs Date Time Temp Pulse Resp B/P (MAP) Pulse Ox O2 Delivery O2 Flow Rate FiO2 01/06/18 00:00 79 18 110/63 (79) 100 01/05/18 23:45 81 100 01/05/18 23:40 80 100 01/05/18 23:35 79 100 01/05/18 23:30 80 100 01/05/18 23:25 81 100 01/05/18 23:20 85 100 01/05/18 23:15 80 100 01/05/18 23:10 79 100 01/05/18 23:05 81 100 01/05/18 23:00 81 113/65 (81) 100 01/05/18 23:00 85 01/05/18 23:00 18 01/05/18 22:55 82 100 01/05/18 22:50 83 100 01/05/18 22:45 96 97 01/05/18 22:40 90 100 01/05/18 22:35 90 100 01/05/18 22:30 87 100 01/05/18 22:25 92 100 01/05/18 22:20 90 100 01/05/18 22:15 94 100 2/6/18 22:10 91 99 2/6/18 22:05 93 99 2/6/18 22:00 90 18 117/66 (83) 99 2/6/18 21:55 93 99 2/6/18 21:50 90 99 2/6/18 21:45 90 99 2/6/18 21:40 95 99 2/6/18 21:35 91 99 2/6/18 21:30 94 99 2/6/18 21:25 94 100 2/6/18 21:20 94 100 2/6/18 21:15 96 100 2/6/18 21:10 94 100 2/6/18 21:05 97 100 2/6/18 21:00 94 123/67 (85) 100 2/6/18 21:00 99 2/6/18 20:55 95 100 2/6/18 20:50 94 100 2/6/18 20:45 95 100 2/6/18 20:40 94 100 2/6/18 20:35 93 100 2//18 20:30 92 100 2//18 20:25 99 100 2//18 20:20 98 100 2/6/18 20:15 99 100 2/6/18 20:10 94 100 2/6/18 20:05 95 100 2//18 20:00 94 2/6/18 20:00 92 114/74 (87) 100 2//18 19:51 98.3 20 2/6/18 19:50 94 100 2/6/18 19:45 103 100 2/6/18 19:40 99 100 2/6/18 19:35 100 100 2/6/18 19:30 99 100 2/6/18 19:25 96 100 2/6/18 19:20 94 100 2/6/18 19:15 95 100 2/6/18 19:10 98 100 2/6/18 19:05 97 100 2/6/18 19:00 100 2/6/18 19:00 99 116/68 (84) 100 2/6/18 18:56 20 2/6/18 18:00 99 120/74 (89) 2/6/18 18:00 18 2/6/18 17:55 100 2/6/18 17:55 105 2/6/18 17:50 99 2/6/18 17:50 96 2/6/18 17:45 93 99 2/6/18 17:40 95 100 2/6/18 17:35 93 99 2/6/18 17:30 98 99 2/6/18 17:25 96 100 2/6/18 17:20 97 100 2/6/18 17:15 100 100 2/6/18 17:10 97 100 2/6/18 17:05 98 100 2/6/18 17:00 18 2/6/18 17:00 102 2/6/18 17:00 110/69 (83) 100 2/6/18 16:55 100 100 2/6/18 16:50 100 100 2/6/18 16:45 101 100 2/6/18 16:40 101 100 2/6/18 16:35 99 100 2/6/18 16:30 100 100 2/6/18 16:25 101 100 2/6/18 16:20 102 100 2/6/18 16:15 99 100 2/6/18 16:10 99 98 2/6/18 16:05 101 100 2/6/18 16:00 20 2/6/18 16:00 99 109/66 (80) 2/6/18 15:00 93 18 107/67 (80) 2/6/18 14:30 92 99 2/6/18 14:25 93 98 2/6/18 14:00 16 2/6/18 14:00 87 2/6/18 14:00 89 112/66 (81) 100 2/6/18 13:55 93 100 2/6/18 13:50 91 100 2/6/18 13:45 93 100 2/6/18 13:40 91 100 2/6/18 13:35 93 100 2/6/18 13:30 92 100 2/6/18 13:25 89 100 2/6/18 13:20 90 100 2/6/18 13:15 89 100 2/6/18 13:10 91 100 2/6/18 13:05 90 100 2/6/18 13:00 95 116/64 (81) 99 2/6/18 13:00 16 2/6/18 12:55 91 100 2/6/18 12:50 96 100 2/6/18 12:45 91 100 2/6/18 12:40 93 100 2/6/18 12:35 89 100 2/6/18 12:30 91 100 2/6/18 12:25 88 100 2/6/18 12:20 86 100 2/6/18 12:15 90 99 2/6/18 12:10 89 99 2/6/18 12:05 100 99 2/6/18 12:00 89 104/60 (75) 98 2/6/18 12:00 97.9 16 2/6/18 11:55 90 2/6/18 11:55 98 2/6/18 11:50 98 2/6/18 11:50 89 2/6/18 11:45 91 2/6/18 11:45 98 2/6/18 11:40 89 2/6/18 11:40 98 2/6/18 11:35 89 2/6/18 11:35 98 2/6/18 11:30 89 2/6/18 11:30 98 2/6/18 11:25 89 2/6/18 11:25 99 2/6/18 11:20 90 99 2/6/18 11:15 91 99 2/6/18 11:10 97 98 2/6/18 11:05 91 99 2/6/18 11:00 91 93/47 (62) 98 2/6/18 11:00 18 2/6/18 10:55 92 98 2/6/18 10:50 90 99 2/6/18 10:45 90 98 2/6/18 10:40 88 98 2/6/18 10:35 91 99 2/6/18 10:30 89 98 2/6/18 10:25 92 98 2/6/18 10:20 89 98 2/6/18 10:15 88 98 2/6/18 10:10 89 97 2/6/18 10:05 89 98 2/6/18 10:00 90 96/52 (67) 98 2/6/18 10:00 18 2/6/18 09:55 89 99 2/6/18 09:50 90 98 2/6/18 09:45 89 98 2/6/18 09:40 88 98 2/6/18 09:35 90 98 2/6/18 09:30 90 99 2/6/18 09:25 90 98 2/6/18 09:20 90 98 2/6/18 09:15 90 98 2/6/18 09:10 91 98 2/6/18 09:05 90 98 2/6/18 09:00 16 2/6/18 09:00 92 99/52 (68) 97 2/6/18 08:55 90 97 2/6/18 08:50 89 98 2/6/18 08:45 91 97 2/6/18 08:40 90 97 2/6/18 08:35 91 97 2/6/18 08:30 93 97 2/6/18 08:25 103 97 2/6/18 08:20 121 100 2/6/18 08:15 95 100 2/6/18 08:10 91 99 2/6/18 08:05 88 99 2/6/18 08:00 98.8 2/6/18 08:00 16 2/6/18 08:00 90 109/62 (78) 99 2/6/18 08:00 91 2/6/18 07:55 93 98 2/6/18 07:50 92 99 2/6/18 07:45 92 99 2/6/18 07:40 92 98 2/6/18 07:35 92 98 2/6/18 07:30 92 99 2/6/18 07:25 90 99 2/6/18 07:20 89 99 2/6/18 07:15 88 99 2/6/18 07:10 89 99 2/6/18 07:05 88 99 2/6/18 07:00 87 110/66 (81) 99 2/6/18 06:55 87 99 2/6/18 06:50 94 100 2/6/18 06:45 90 99 2/6/18 06:42 16 2/6/18 06:40 93 99 2/6/18 06:35 89 99 2/6/18 06:30 89 99 2/6/18 06:25 89 99 2/6/18 06:20 89 100 2/6/18 06:15 90 100 2/6/18 06:10 89 100 2/6/18 06:05 89 100 2/6/18 06:00 89 2/6/18 06:00 91 111/66 (81) 99 2/6/18 06:00 18 2/6/18 05:55 91 99 2/6/18 05:50 90 99 2/6/18 05:45 90 100 2/6/18 05:40 100 2/6/18 05:40 90 2/6/18 05:35 100 2/6/18 05:35 89 2/6/18 05:30 89 2/6/18 05:30 100 2/6/18 05:25 91 2/6/18 05:25 100 2/6/18 05:20 94 100 2/6/18 05:15 90 100 2/6/18 05:10 91 100 2/6/18 05:05 91 100 2/6/18 05:00 92 2/6/18 05:00 92 112/69 (83) 100 2/6/18 05:00 98.0 16 2/6/18 04:55 94 100 2/6/18 04:50 91 100 2/6/18 04:45 92 100 2/6/18 04:40 90 100 2/6/18 04:35 92 100 2/6/18 04:30 92 100 2/6/18 04:25 91 100 2/6/18 04:20 92 100 2/6/18 04:15 90 100 2/6/18 04:10 91 100 2/6/18 04:05 90 100 2/6/18 04:00 18 2/6/18 04:00 89 2/6/18 04:00 89 105/62 (76) 100 2/6/18 03:55 91 100 2/6/18 03:50 93 100 2/6/18 03:45 90 100 2/6/18 03:40 93 100 2/6/18 03:35 91 100 2/6/18 03:30 93 100 2/6/18 03:25 91 100 2/6/18 03:20 92 100 2/6/18 03:15 97 100 2/6/18 03:10 90 100 2/6/18 03:05 90 100 2/6/18 03:00 89 2/6/18 03:00 89 112/68 (83) 100 2/6/18 02:55 90 100 2/6/18 02:50 88 100 2/6/18 02:45 89 100 2/6/18 02:40 91 100 2/6/18 02:35 90 100 2/18 02:30 88 100 2/18 02:25 91 100 2/18 02:20 88 100 218 02:15 90 100 218 02:10 89 100 218 02:05 87 100 2 02:00 16 01/05/18 02:00 88 01/05/18 02:00 89 18 110/68 (82) 100 2 01:55 87 100 2 01:50 86 100 218 01:45 89 100 2 01:40 93 100 218 01:35 88 100 2 01:30 88 100 2 01:25 87 100 2 01:20 87 99 2/05/17 01:15 87 100 2 01:10 90 99 01/05/18 01:05 88 100 01/05/18 01:00 89 112/68 (83) 100 2 01:00 20 Result Diagram: 01/04/18 0154 Jeanette Vivas MD Jan 06, 2018 01:10
[2018-01-06] MEDS: PENICILLIN G POTASSIUM INJ 2,500,000 UNITS in SODIUM CHLORIDE 0.9% INJ 100 ML IV SCH ×2 (02:15→06:05)
[2018-01-06] MEDS: LACTATED RINGER'S 1000 ML INJ 1,000 ML IV SCH ×2 (04:10→15:55)
[2018-01-06] MEDS: SODIUM CHLORIDE 0.9% FLUSH 10 ML FLUSH IV FLUSH SCH ×2 (08:51→21:00)
[2018-01-06] MEDS: BETAMETHASONE SOD PHOS/ACETATE SUSP 30 MG/5 ML VIAL IM SCH (14:00)
[2018-01-06] MEDS: TERBUTALINE SULFATE 5 MG TAB PO SCH (18:16)
[2018-01-07 00:01] VITALS: BP 119/60; PULSE 99
[2018-01-07] MEDS: TERBUTALINE SULFATE 5 MG TAB PO SCH ×2 (00:01→05:57)
[2018-01-07 00:02] VITALS: TEMP 98
[2018-01-07] MEDS: LACTATED RINGER'S 1000 ML INJ 1,000 ML IV SCH (05:15)
[2018-01-07 05:56] VITALS: BP 125/54; PULSE 107
[2018-01-07 06:00] VITALS: RESP 18; TEMP 97.8
[2018-01-07] MEDS ORDERED: [UNRECOGNIZED DRUG - CODE] PO (08:40)
--- NOTE | 2018-01-07 08:42 | HHI.DCPOC ---
Discharge Care Plan Diagnosis: (1) Threatened labor (2) 32 weeks gestation of Report Symptoms to Your Doctor -Temperature above 100.5 degrees -Redness, of incision or excessive or foul smelling drainage -Unusual pain or calf pain -Increased vaginal bleeding -Painful or difficulty urinating -Feelings of extreme sadness or anxiety after 2 weeks Goals to Promote Your Health * To prevent worsening of your condition and complications * To maintain your health at the optimal level Directions to Meet Your Goals Take your medications as prescribed Follow your dietary instruction Follow activity as directed Ensure plenty of rest for recovery Drink fluids for hydration Keep your appointments as scheduled Take your immunizations and boosters as scheduled If your symptoms worsen call your PCP, if no PCP go to Urgent Care Center or Emergency Room Smoking is Dangerous to Your Health. Avoid second hand smoke Call the 24-hour crisis hotline for domestic abuse at Fozia Sandoval MD R1 Jan 07, 2018 08:42
--- NOTE | 2018-01-07 08:53 | PD.OB.ANTE ---
Subjective Diagnosis: (1) Threatened labor Diagnosis: Principal (2) 32 weeks gestation of Interval History Patient seen and examined this morning. She states that she is doing well. Still feels contractions, but are not painful. States that the Terbutaline 5mg makes her feel jittery and her heart race. She refused her last dose due to this. Is eager to go home. Antepartum ROS: Reports: movement normal, Contractions, Denies: New complaints, Loss of fluid, Vaginal bleeding Objective Vital Signs Vital Signs Date Time Temp Pulse Resp B/P (MAP) Pulse Ox O2 Delivery O2 Flow Rate FiO2 01/07/18 06:00 97.8 18 01/07/18 05:56 107 125/54 (77) 01/07/18 00:02 98.0 01/07/18 00:01 99 119/60 (79) 01/06/18 23:00 16 01/06/18 20:59 107 124/67 (86) 01/06/18 20:58 99.1 18 01/06/18 18:00 18 01/06/18 17:05 77 100 01/06/18 17:00 18 01/06/18 17:00 74 01/06/18 17:00 77 112/67 (82) 100 01/06/18 16:00 80 106/59 (75) 100 01/06/18 16:00 16 01/06/18 16:00 78 01/06/18 15:10 88 100 01/06/18 15:05 83 100 01/06/18 15:00 16 01/06/18 15:00 81 01/06/18 15:00 84 100/55 (70) 100 01/06/18 14:09 97.8 01/06/18 14:05 96 100 01/06/18 14:00 95 113/63 (80) 100 01/06/18 14:00 94 01/06/18 14:00 17 01/06/18 13:20 95 100 01/06/18 13:15 97 100 01/06/18 13:10 95 100 01/06/18 13:05 95 100 01/06/18 13:00 123/68 (86) 100 01/06/18 13:00 17 01/06/18 13:00 97 01/06/18 12:55 98 100 01/06/18 12:50 100 100 2/7/18 12:45 97 100 01/06/18 12:40 101 100 01/06/18 12:35 100 100 01/06/18 12:30 107 100 01/06/18 12:25 105 100 01/06/18 12:20 101 100 01/06/18 12:15 105 100 01/06/18 12:10 107 100 01/06/18 12:05 103 100 01/06/18 12:00 18 01/06/18 12:00 102 01/06/18 12:00 113/68 (83) 100 01/06/18 12:00 97.9 01/06/18 11:09 16 01/06/18 11:05 99 100 01/06/18 11:00 93 119/71 (87) 100 01/06/18 11:00 93 01/06/18 10:27 18 01/06/18 10:25 92 100 01/06/18 10:20 92 100 01/06/18 10:15 92 100 01/06/18 10:10 87 100 01/06/18 10:05 82 100 01/06/18 10:00 17 01/06/18 10:00 82 105/70 (82) 100 01/06/18 09:55 76 96 01/06/18 09:50 91 97 01/06/18 09:40 78 100 01/06/18 09:35 86 100 01/06/18 09:30 89 100 01/06/18 09:25 80 100 01/06/18 09:20 86 100 01/06/18 09:15 77 100 01/06/18 09:10 78 100 01/06/18 09:05 78 100 01/06/18 09:00 114/70 (85) 100 01/06/18 09:00 80 01/06/18 08:55 77 100 01/06/18 08:50 79 100 01/06/18 08:48 98.1 17 01/06/18 08:45 76 100 Lab & Micro Results Date/Time Source Procedure Growth Status 01/05/18 20:30 Genital Genital Region Group B Streptococcus Screen - Preliminary RESULTS PENDING Resulted Physical Exam GENERAL: Well-nourished, well-developed patient. CARDIOVASCULAR: Regular rate and rhythm without murmurs, gallops, or rubs. RESPIRATORY: Breath sounds equal bilaterally. No accessory muscle use. ABDOMEN/GI: Abdomen soft, non-tender. Fundus: [-] GENITOURINARY: External Genitalia: intact and normal in appearance Cervix: Unchanged from previous examination Dilatation: 1 Effacement: 80% Station: -2 Uterine Contractions: q1-2min, but low amplitude on FHT FHT's: Category: 1 Baseline: 150s Reactive: yes Variability: moderate Decels: none EXTREMITIES: No cyanosis or edema, non-tender, without signs of DVT. Assessment and Plan Problem List: (1) Threatened labor ICD Codes: O47.00 - False labor before 37 completed weeks of gestation, unspecified trimester Status: Acute Qualifiers: Qualified Codes: O47.03 - False labor before 37 completed weeks of gestation , third trimester (2) 32 weeks gestation of ICD Codes: Z3A.32 - 32 weeks gestation of Status: Acute Assessment and Plan 27y/o @ 32/5wks with threatened PTL. FFN positive cervix 1/80/-2 unchanged from previous exam s/p BMZ -Continuous FHT -Mg infusion d/c'd yesterday evening -Will d/c home on Terbutaline 2.5mg q6h until 36 weeks gestation -Advised pt to return to hospital if any concerns -Advised her to follow up at [facility] for post-hospital f/u appt Will D/C home today STACEYW Fozia Thompson MD R1 Jan 07, 2018 08:53
== END 2018-01-07 09:41 | disposition home or self-care (01) | DRG 778 ==
LOC: HOBED 23:57 → H2EA 01-04 01:11 → OBSVTOIN 01-05 10:32
PROVIDERS: ADMIT Obstetrics & Gynecology; ATTEND Obstetrics & Gynecology
DX: O60.03 Preterm labor without delivery, third trimester (principal); O46.93 Antepartum hemorrhage, unspecified, third trimester; Z88.2 Allergy status to sulfonamides; Z3A.32 32 weeks gestation of pregnancy; Z91.040 Latex allergy status
CPT/HCPCS: 80307; 81001; 82731; 83735; 85025; 87081; 87150; G0481; J0702; J2540; J3410; J3475; J7120

== ENCOUNTER 2018-02-15 02:58 | Inpatient (IN) | payer OTHER ==
[2018-02-15] VITALS (57 sets, daily range): BP systolic 78–138; BP diastolic 46–82; PULSE 61–99; RESP 17–18; TEMP 97.9–98.3
[~2018-02-15] VITALS: Ht 180.3 cm; Wt 65.0 kg
[~2018-02-15 02:58] MED LIST changes: -MACR100C2 PO; +[UNRECOGNIZED DRUG - CODE] PO
[2018-02-15] MEDS: LACTATED RINGER'S 1000 ML INJ 1,000 ML IV SCH ×2 (03:30→11:30)
[2018-02-15] MEDS ORDERED: MINERAL OIL 10 ML VIAL TOPICAL PRN (03:30)
[2018-02-15] MEDS ORDERED: LIDOCAINE HCL 1% 50 ML VIAL INFIL PRN (03:30)
[2018-02-15] MEDS ORDERED: LIDOCAINE HCL 1% 50 ML VIAL I-DERMAL PRN (03:30)
[2018-02-15] MEDS ORDERED: LACTATED RINGER'S 1000 ML INJ 1,000 ML IV PRN (03:30)
[2018-02-15] MEDS ORDERED: CITRIC ACID-SODIUM CITRATE LIQ 30 ML UDC PO SCH (03:30)
[2018-02-15] MEDS ORDERED: OXYTOCIN 30 UNITS-500ML PREMIX 500 ML IV ONE (03:30)
[2018-02-15] MEDS ORDERED: SODIUM CHLORID 0.9% 500 ML INJ 500 ML IV PRN (03:30)
--- NOTE | 2018-02-15 03:36 | HHI.HP ---
HPI Chief Complaint Water broke and trip Date Seen: Feb 15, 2018 Time Seen: 03:30 Travel History International Travel<30 Days: No Contact w/Intl Traveler<30Days: No Known Affected Area: No History of Present Illness HPI Patient is 27-year-old white female at 38 weeks patient Anna Amaya who presents with spontaneous rupture membranes and contractions in early labor , heart rate tracing is reactive and she is trip irregularly every 2-3 minutes Weeks Gestation: 38 Para: 0 : 3 Miscarriage: 2 History Obstetric History Obstetric History 2 early losses This said threatened labor has been in many times here to OB ED is received betamethasone in the past but has made it to term Social History Alcohol Use: No Tobacco Use: No Substance Abuse: No Allergies-Medications (Allergen,Severity, Reaction): Coded Allergies: Sulfa (Sulfonamide Antibiotics) (Unverified Allergy, Intermediate, Rash, ) latex (Unverified Allergy, Intermediate, itching, 12/13/17) Home Meds Active Scripts Terbutaline Sulfate (Terbutaline Sulfate) 2.5 Mg Tab, 2.5 MG PO Q6H for Asthma Management for 25 Days, #100 TAB 0 Refills Take every 6 hours 3 times/day Prov:Fozia Sandoval MD R1 01/07/18 Ferrous Sulfate (Ferrous Sulfate) 325 Mg (65 Mg Iron) Tablet, 325 MG PO BIDPC for Nutritional Supplement, #60 TAB 0 Refills Prov:Shama Guerrero MD 11/04/17 Promethazine Supp (Phenergan Supp) 25 Mg Supp, 25 MG RECTAL Q6H Y for NAUSEA OR VOMITING, #6 SUPP 0 Refills Prov:Shama Guerrero MD 11/04/17 Promethazine (Phenergan) 25 Mg Tablet, 25 MG PO Q6H Y for NAUSEA OR VOMITING, # 120 TAB 1 Refill Prov:Shama Guerrero MD 11/04/17 Ondansetron Odt (Zofran Odt) 4 Mg Tab, 4 MG SL Q6HR Y for Nausea/Vomiting, #30 TAB 0 Refills Prov:Jordan Mcdaniel MD 07/12/17 Review of Systems General / Constitutional: No: Fever, Weight Gain, Chills, Other Eyes: No: Diploplia, Blurred Vision, Visual changes, Pain, Photophobia HENT: No: Headaches, Vertigo, Lightheadedness Cardiovascular: No: Irregular Rhythm, Chest Pain or Discomfort, Palpitations, Tachycardia, Syncope, Varicosities, Edema, Cyanosis Respiratory: No: Cough, Short of Breath, Other Gastrointestinal: Abdominal Pain, No: Nausea, Vomiting, Diarrhea Genitourinary: No: Decreased Urinary Output, Oliguria Musculoskeletal: No: Limited ROM, Weakness, Cramping, Edema, Pain Skin: No Rash, No Itching, No Dryness, No Lumps, No Change in Pigmentation, No Change in Nails, No Alopecia, No Lesions Neurologic: No: Weakness, Dizziness, Syncope, Focal Abnormalities, Coordination Problem, Headache, Slurred Speech, Seizures Psychiatric: No: Depression, Suicidal Ideations, Homicidal Ideation Endocrine: No: Heat Intolerance, Cold Intolerance, Polydipsia, Polyuria, Other Physical Exam Narrative GENERAL: Well-nourished, well-developed patient. SKIN: Warm and dry. HEAD: Normocephalic and atraumatic. EYES: No scleral icterus. No injection or drainage. ENT: No nasal drainage noted. Mucous membranes pink. Airway patent. NECK: Supple, trachea midline. No JVD. CARDIOVASCULAR: Regular rate and rhythm without murmurs, gallops, or rubs. RESPIRATORY: Breath sounds equal bilaterally. No accessory muscle use. BREASTS: Bilateral exam showed no masses , no retractions, no nipple discharge. ABDOMEN/GI: Abdomen soft, non-tender, bowel sounds present, no rebound, no guarding Gravid to [-38] weeks size Fundal Height: [36-] GENITOURINARY: External Genitalia: intact and normal in appearance BUS glands: [-] Cervix: [ant-] Dilatation: [4-] Effacement: [-80] Station: [0-] Presentation: [vtx-] Membranes: [ ruptured] Uterine Contractions: [q 2-3 min-] FHT's: Category: [-1] Baseline: [133-] Reactive: [R-] Variability: [-mod] Decels: [-none] EXTREMITIES: No cyanosis or edema. BACK: Nontender without obvious deformity. No CVA tenderness. NEUROLOGICAL: Awake and alert. Motor and sensory grossly within normal limits. Five out of 5 muscle strength in all muscle groups. Normal speech. Caprini VTE Risk Assessment Caprini VTE Risk Assessment: No/Low Risk (score <= 1) Caprini Risk Assessment Model Point Value = 1 Point Value = 2 Point Value = 3 Point Value = 5 Age 41-60 Minor surgery BMI > 25 kg/m2 Swollen legs Varicose veins or History of unexplained or recurrent spontaneous Oral contraceptives or hormone replacement Sepsis (< 1 month) Serious lung disease, including pneumonia (< 1 month) Abnormal pulmonary function Acute myocardial infarction Congestive heart failure (< 1 month) History of inflammatory bowel disease Medical patient at bed rest Age 61-74 Arthroscopic surgery Major open surgery (> 45 min) Laparoscopic surgery (> 45 min) Malignancy Confined to bed (> 72 hours) Immobilizing plaster cast Central venous access Age >= 75 History of VTE Family history of VTE Factor V Leiden Prothrombin [id number] Lupus anticoagulant Anticardiolipin antibodies Elevated serum homocysteine Heparin-induced thrombocytopenia Other congenital or acquired thrombophilia Stroke (< 1 month) Elective arthroplasty Hip, pelvis, or leg fracture Acute spinal cord injury (< 1 month) Prophylaxis Regimen Total Risk Factor Score Risk Level Prophylaxis Regimen 0-1 Low Early ambulation 2 Moderate Order ONE of the following: *Sequential Compression Device (SCD) *Heparin 5000 units SQ BID 3-4 Higher Order ONE of the following medications: *Heparin 5000 units SQ TID *Enoxaparin/Lovenox 40 mg SQ daily (WT < 150 kg, CrCl > 30 mL/min) *Enoxaparin/Lovenox 30 mg SQ daily (WT < 150 kg, CrCl > 10-29 mL/min) *Enoxaparin/Lovenox 30 mg SQ BID (WT < 150 kg, CrCl > 30 mL/min) AND/OR *Sequential Compression Device (SCD) 5 or more Highest Order ONE of the following medications: *Heparin 5000 units SQ TID (Preferred with Epidurals) *Enoxaparin/Lovenox 40 mg SQ daily (WT < 150 kg, CrCl > 30 mL/min) *Enoxaparin/Lovenox 30 mg SQ daily (WT < 150 kg, CrCl > 10-29 mL/min) *Enoxaparin/Lovenox 30 mg SQ BID (WT < 150 kg, CrCl > 30 mL/min) AND *Sequential Compression Device (SCD) Data Data Orders Orders Ob (2e) Additional Admit Info (02/15/18 03:13) Admit To Inpatient (02/15/18 ) Vital Signs (Adult) .Per protocol (02/15/18 03:30) Heart (02/15/18 03:30) Amnioinfusion (02/15/18 03:30) Urinary Catheter Management .ONCE (02/15/18 03:30) Diet Npo (02/15/18 Breakfast) Lactated Ringer's 1000 Ml Inj (Lr 1000 M (02/15/18 03:30) Lactated Ringer's 1000 Ml Inj (Lr 1000 M (02/15/18 03:30) Sodium Chlorid 0.9% 500 Ml Inj (Ns 500 M (02/15/18 03:30) Sodium Chlor 0.9% 1000 Ml Inj (Ns 1000 M (02/15/18 03:50) Lidocaine 1% Inj (50 Ml) (Xylocaine 1% I (02/15/18 03:30) Citric Acid-Sodium Citrate Liq (Bicitra (02/15/18 03:30) Fentanyl Inj (Fentanyl Inj) (02/15/18 03:30) Fentanyl Inj (Fentanyl Inj) (02/15/18 03:30) Complete Blood Count With Diff (02/15/18 03:30) Hold Clot (02/15/18 03:30) Abo/Rh Blood Type (02/15/18 03:30) Urinalysis - C+S If Indicated (02/15/18 03:30) Drug Screen, Random Urine (02/15/18 03:30) Ob/Psych Drug Screen, Urine (02/15/18 03:30) Type And Screen (02/15/18 03:30) Resp Oxygen Non Rebreathe Mask (02/15/18 ) ^ Epidural / Intrathecal Infus (02/15/18 03:30) Oxytocin 30 Units-500ml Premix (Pitocin (02/15/18 03:30) Lidocaine 1% Inj (50 Ml) (Xylocaine 1% I (02/15/18 03:30) Light Mineral Oil (Muri-Lube Oil) (02/15/18 03:30) Specimen To Be Collected PRN (02/15/18 03:30) Specimen To Be Collected PRN (02/15/18 03:30) Assessment/Plan Assessment and Plan Patient is 27-year-old white female A2 38 weeks who presents with spontaneous rupture membranes in early labor, cervix is 4/80/0/vertex, contractions noted on the monitor heart rate tracing is reactive Plan-admit to labor and delivery, managed labor appropriately, anticipate vaginal delivery Crow Jones II, MD Feb 15, 2018 03:36
[2018-02-15] MEDS ORDERED: SODIUM CHLOR 0.9% 1000 ML INJ 1,000 ML IV PRN (03:50)
[2018-02-15 04:48] LABS: AUTOMATED NEUTROPHIL # 5.3 TH/MM3 (1.8-7.7); BASOPHIL % 0.3 % (0.0-2.0); EOSINOPHIL # 0.1 TH/MM3 (0-0.4); EOSINOPHIL % 1.2 % (0.0-4.0); HEMOGLOBIN 10.2 GM/DL (11.6-15.3); LYMPH % 18.9 % (9.0-44.0); LYMPHOCYTE # 1.4 TH/MM3 (1.0-4.8); MEAN CELL VOLUME 74.5 FL (80.0-100.0); MEAN CORPUSCULAR HEMOGLOBIN 24.4 PG (27.0-34.0); MEAN CORPUSCULAR HGB CONC 32.8 % (32.0-36.0); MEAN PLATELET VOLUME 9.6 FL (7.0-11.0); MONO % 7.6 % (0.0-8.0); MONOCYTE # 0.6 TH/MM3 (0-0.9); PLATELET COUNT 194 TH/MM3 (150-450); RED BLOOD COUNT 4.17 MIL/MM3 (4.00-5.30); RED CELL DISTRIBUTION WIDTH 17.1 % (11.6-17.2); WHITE BLOOD COUNT 7.4 TH/MM3 (4.0-11.0)
[2018-02-15] MEDS ORDERED: OXYTOCIN 30 UNITS-500ML PREMIX 500 ML IV PRN (05:00)
[2018-02-15 05:03] LABS: BILIRUBIN, URINE NEG (NEG); BLOOD, URINE LARGE (NEG); GLUCOSE,URINE NEG (NEG); KETONE, URINE NEG (NEG); NITRITE,URINE NEG (NEG); SQUAMOUS EPITHELIAL CELL URINE 2 /hpf (0-5); URINE COLOR YELLOW (YELLW/STRAW); URINE LEUKOCYTE ESTERASE MOD (NEG)
--- NOTE | 2018-02-15 07:16 | HHI.OB ---
Objective Vitals/I&O Vital Signs Date Time Temp Pulse Resp B/P (MAP) Pulse Ox O2 Delivery O2 Flow Rate FiO2 02/15/18 07:12 18 02/15/18 07:00 62 114/63 (80) 02/15/18 06:30 61 123/76 (92) 02/15/18 06:00 75 113/66 (82) 02/15/18 06:00 75 113/66 (82) 02/15/18 05:30 62 107/71 (83) 02/15/18 05:30 62 107/71 (83) 02/15/18 05:10 98.0 18 02/15/18 05:08 76 114/74 (87) Result Diagram: 02/15/18 0400 Objective Remarks GENERAL: Well-nourished, well-developed patient. CARDIOVASCULAR: Regular rate and rhythm without murmurs, gallops, or rubs. RESPIRATORY: Breath sounds equal bilaterally. No accessory muscle use. ABDOMEN/GI: Abdomen soft, non-tender, bowel sounds present. Incision: Clean, dry and intact. Fundus: Firm, non-tender at umbilicus. GENITOURINARY: Light to moderate bleeding. EXTREMITIES: No cyanosis or edema, non-tender, without signs of DVT. Medications and IVs Current Medications Medications (Trade) Dose Ordered Sig/Romain Route Start Time Stop Time Status Last Admin Lactated Ringer's 1,000 ml @ 125 mls/hr Q8H IV 02/15/18 03:30 02/15/18 03:30 Lactated Ringer's 1,000 ml @ 3,000 mls/hr Q20M PRN IV 02/15/18 03:30 Sodium Chloride 500 ml @ 1,000 mls/hr ONCE PRN IV 02/15/18 03:30 02/16/18 03:29 Sodium Chloride 1,000 ml @ 100 mls/hr Q10H PRN IV 02/15/18 03:50 (Xylocaine 1% Inj (50 ml)) 0.1 ml UNSCH X1 PRN I-DERMAL 02/15/18 03:30 02/18/18 03:29 (Bicitra Liq) 30 ml CORN SHELLER PO 02/15/18 03:30 02/19/18 03:29 (fentaNYL INJ) 50 mcg Q1H PRN IV PUSH 02/15/18 03:30 (fentaNYL INJ) 100 mcg Q1H PRN IV PUSH 02/15/18 03:30 (Xylocaine 1% Inj (50 ml)) 10 ml UNSCH X1 PRN INFIL 02/15/18 03:30 02/17/18 03:29 (Muri-Lube Oil) 10 ml UNSCH PRN TOPICAL 02/15/18 03:30 Oxytocin 500 ml @ 0 mls/hr TITRATE PRN IV 02/15/18 05:00 Assessment/Plan Assessment and Plan Patient is 27-year-old white female A2 38 weeks who presents with spontaneous rupture membranes in early labor, cervix is 4/80/0/vertex, contractions noted on the monitor heart rate tracing is reactive Plan-admit to labor and delivery, managed labor appropriately, anticipate vaginal delivery Fozia Sandoval MD R1 Feb 15, 2018 07:16
--- NOTE | 2018-02-15 11:20 | PD.LABORPN ---
Subjective Subjective Patient states that she is doing well. She is resting comfortably. She does not wish to have an epidural at this time. Objective Vital Signs Vital Signs Date Time Temp Pulse Resp B/P (MAP) Pulse Ox O2 Delivery O2 Flow Rate FiO2 02/15/18 11:00 68 105/61 (76) 02/15/18 10:39 18 02/15/18 10:30 66 101/57 (72) 02/15/18 10:15 18 02/15/18 10:05 71 124/82 (96) 02/15/18 09:40 97.9 02/15/18 09:39 18 02/15/18 09:30 64 98/57 (71) 02/15/18 09:05 18 02/15/18 09:00 62 98/63 (75) 02/15/18 08:32 69 109/63 (78) 02/15/18 08:15 18 02/15/18 08:00 64 78/63 (68) 02/15/18 07:45 18 02/15/18 07:30 61 103/66 (78) 02/15/18 07:15 98.2 02/15/18 07:12 18 02/15/18 07:00 62 114/63 (80) 02/15/18 06:30 61 123/76 (92) 02/15/18 06:00 75 113/66 (82) 02/15/18 06:00 75 113/66 (82) 02/15/18 05:30 62 107/71 (83) 02/15/18 05:30 62 107/71 (83) 02/15/18 05:10 98.0 18 02/15/18 05:08 76 114/74 (87) Objective Pelvic Exam: Cervix: midline Dilatation: 5 Effacement: 80 Station: -1 Presentation: vertex Membranes: ruptured Uterine Contractions: q2min FHT's: Category: 1 Baseline: 130s Reactive: yes Variability: moderate Decels: none Weeks Gestation: 38 Assessment/Plan Problem List: (1) Intrauterine ICD Codes: Z34.90 - Encounter for supervision of normal , unspecified , unspecified trimester Status: Acute Assessment and Plan Ms. López is a 27yo at 38/2 weeks gestation who presented in labor. -FHT is category 1, reassuring -Cervix: 5/80/-1 -Continue Oxytocin -Continue to monitor Fozia Sandoval MD R1 Feb 15, 2018 11:20
[2018-02-15] MEDS ORDERED: PENICILLIN G POTASSIUM INJ 5,000,000 UNITS in SODIUM CHLORIDE 0.9% INJ 100 ML IV ONE (13:00)
--- NOTE | 2018-02-15 14:15 | PD.LABORPN ---
Subjective Subjective Pt states that she is doing well. No concerns at this time. She declines further pain management at this time. She is experiencing some vaginal bleeding. It is not gushing and she had on a pad. Objective Vital Signs Vital Signs Date Time Temp Pulse Resp B/P (MAP) Pulse Ox O2 Delivery O2 Flow Rate FiO2 02/15/18 13:45 18 02/15/18 13:30 62 96/47 (63) 02/15/18 13:04 18 02/15/18 13:00 65 96/46 (63) 02/15/18 12:38 18 02/15/18 12:30 61 113/67 (82) 02/15/18 12:15 18 02/15/18 12:13 91 97/61 (73) 02/15/18 11:56 97.9 02/15/18 11:45 18 02/15/18 11:00 68 105/61 (76) 02/15/18 10:39 18 02/15/18 10:30 66 101/57 (72) 02/15/18 10:15 18 02/15/18 10:05 71 124/82 (96) 02/15/18 09:40 97.9 02/15/18 09:39 18 02/15/18 09:30 64 98/57 (71) 02/15/18 09:05 18 02/15/18 09:00 62 98/63 (75) 02/15/18 08:32 69 109/63 (78) 02/15/18 08:15 18 02/15/18 08:00 64 78/63 (68) 02/15/18 07:45 18 02/15/18 07:30 61 103/66 (78) 02/15/18 07:15 98.2 02/15/18 07:12 18 02/15/18 07:00 62 114/63 (80) 02/15/18 06:30 61 123/76 (92) Objective Pelvic Exam: Cervix: midline Dilatation: 5 Effacement: 80 Station: -1 Presentation: vertex Membranes: ruptured Uterine Contractions: q2min FHT's: Category: 1 Baseline: 130s Reactive: yes Variability: moderate Decels: none Weeks Gestation: 38 Assessment/Plan Problem List: (1) Intrauterine ICD Codes: Z34.90 - Encounter for supervision of normal , unspecified , unspecified trimester Status: Acute Plan: Ms. López is a 27yo at 38/2 weeks gestation who presented in labor. -FHT is category 1 -Cervix: 5/80/-1, unchanged from 1000 exam -Continue Oxytocin -AROM of forebag -Patient was advised about receiving epidural and about risk of C/S if no further progression of labor -Continue to monitor for further progress after AROM Fozia Sandoval MD R1 Feb 15, 2018 14:15
--- NOTE | 2018-02-15 14:25 | HHI.PR ---
SPECIAL EDUCATION EDUCATIONAL ASSISTANT Note Note Patient checked with cervix 5/80/-2 OA presentation with forebag. Rupture of forebag performed with copious clear amniotic fluid. Although slow progress at this time the heart rate tracing is Category 1 and rupture of forebag may assist in descent of head. Patient on PCN after GBS results obtained from [facility]. Lilia Cox MD Feb 15, 2018 14:25
[2018-02-15] MEDS ORDERED: fentaNYL 2MCG-BUPIV 0.125% INJ 100 ML ONE (15:03)
[2018-02-15] MEDS ORDERED: MEASLES, MUMPS, RUBELLA VACCINE 0.5 ML VIAL SQ ONE (16:00)
[2018-02-15] MEDS ORDERED: LIDOCAINE HCL 1% 20 ML VIAL ONE (16:04)
--- NOTE | 2018-02-15 16:19 | PD.OB.DELI ---
Weeks gestation: 38 Artificial rupture of membrane: No Anesthesia: Epidural Episiotomy: None Vaginal Delivery: Normal Presentation: Occiput anterior Nuchal Cord: None Delayed cord clamping (45 sec): Yes : Male Delivery date: Feb 15, 2018 Delivery time: 15:56 One Minute : 8 Five Minute : 9 Weight: 3060 Placenta: Spontaneous delivery Laceration: Vaginal laceration (left periurethral) Repair: Chromic running Estimated blood loss: 150 (Fozia Sandoval MD R1) Collaborating MD Comments was directly supervised by me (Lilia Cox MD) Fozia Sandoval MD R1 Feb 15, 2018 16:19 Lilia Cox MD Feb 19, 2018 08:21
[2018-02-15] MEDS ORDERED: ACETAMINOPHEN 325 MG TAB PO PRN (16:30)
[2018-02-15] MEDS ORDERED: IBUPROFEN 800 MG TAB PO PRN (16:30)
[2018-02-15] MEDS ORDERED: OXYTOCIN 30 UNITS-500ML PREMIX 500 ML IV SCH (16:30)
[2018-02-15] MEDS ORDERED: DOCUSATE SODIUM 50 MG/SENNA 8.6 MG TAB PO PRN (16:30)
[2018-02-15] MEDS ORDERED: ALUMINUM/MAGNESIUM/SIMETH 30 ML CUP PO PRN (16:30)
[2018-02-15] MEDS ORDERED: ZOLPIDEM TARTRATE 5 MG TAB PO PRN (16:30)
[2018-02-15] MEDS ORDERED: SODIUM CHLORIDE 0.9% FLUSH 10 ML FLUSH IV FLUSH PRN (16:30)
[2018-02-15] MEDS ORDERED: ONDANSETRON ODT 4 MG TAB PO PRN (16:30)
[2018-02-15] MEDS ORDERED: BENZOCAINE 20% TOPICAL SPRAY 60 ML CAN TOPICAL PRN (16:30)
[2018-02-15] MEDS ORDERED: oxyCODONE/ACETAMINOPHEN 5 MG/325 MG TAB PO PRN ×2 (16:30)
[2018-02-15] MEDS ORDERED: WITCH HAZEL 50%/GLYCERIN 12.5% 40 PAD JAR TOPICAL PRN (16:30)
[2018-02-15] MEDS ORDERED: ePHEDrine/NS 25 MG/5 ML SYRINGE IV PUSH PRN (17:00)
[2018-02-15] MEDS ORDERED: NO SYSTEM NARCOTICS PRN (17:00)
[2018-02-15] MEDS ORDERED: fentaNYL 2MCG-BUPIV 0.125% 100 ML EPIDURAL SCH (17:00)
[2018-02-15] MEDS ORDERED: DO NOT ADMINISTER ANTICOAGULANTS PRN (17:00)
[2018-02-15] MEDS ORDERED: DIPHTH/TETANUS/ACEL PERTUSSIS (BOOSTER) 0.5 ML VIAL/PFS IM ONE (19:30)
--- NOTE | 2018-02-16 07:24 | HHI.OB ---
Subjective Post Day: 1 Remarks day # 1. AFVSS overnight. Pain none. Decreased lochia. Denies dysuria. No breast tenderness. She is feeding the baby via breast. Appetite good. No nausea or vomiting. no flatus. no bowel movement. Ambulating well. Denies calf pain, shortness of breath, or cough. Otherwise, she is doing well this morning and has no other complaints. Objective Vitals/I&O Vital Signs Date Time Temp Pulse Resp B/P (MAP) Pulse Ox O2 Delivery O2 Flow Rate FiO2 02/15/18 20:00 98.3 66 18 122/72 (89) 02/15/18 17:00 65 116/74 (88) 02/15/18 16:45 63 124/79 (94) 02/15/18 16:41 17 02/15/18 16:30 65 128/81 (97) 02/15/18 16:30 98.1 02/15/18 16:20 18 02/15/18 16:15 76 125/81 (96) 02/15/18 16:00 77 117/79 (92) 02/15/18 15:55 99 138/81 (100) 02/15/18 15:50 72 02/15/18 15:50 78 123/71 (88) 02/15/18 15:45 74 117/82 (94) 02/15/18 15:45 77 02/15/18 15:40 79 02/15/18 15:40 87 99/56 (70) 02/15/18 15:35 71 121/65 (83) 02/15/18 15:35 82 02/15/18 15:34 68 123/74 (90) 02/15/18 15:30 75 18 116/69 (85) 02/15/18 15:30 70 02/15/18 15:25 73 117/71 (86) 02/15/18 15:25 73 02/15/18 15:20 80 107/74 (85) 02/15/18 15:20 78 02/15/18 15:15 73 02/15/18 15:15 76 112/78 (89) 02/15/18 15:10 80 91/69 (76) 02/15/18 15:10 90 02/15/18 15:08 73 106/61 (76) 02/15/18 15:02 71 102/56 (71) 02/15/18 14:45 18 02/15/18 14:30 94 133/75 (94) 02/15/18 14:00 80 111/71 (84) 02/15/18 13:45 18 02/15/18 13:30 62 96/47 (63) 02/15/18 13:04 18 02/15/18 13:00 65 96/46 (63) 02/15/18 12:38 18 02/15/18 12:30 61 113/67 (82) 02/15/18 12:15 18 02/15/18 12:13 91 97/61 (73) 02/15/18 11:56 97.9 02/15/18 11:45 18 02/15/18 11:00 68 105/61 (76) 02/15/18 10:39 18 02/15/18 10:30 66 101/57 (72) 02/15/18 10:15 18 02/15/18 10:05 71 124/82 (96) 02/15/18 09:40 97.9 02/15/18 09:39 18 02/15/18 09:30 64 98/57 (71) 02/15/18 09:05 18 02/15/18 09:00 62 98/63 (75) 02/15/18 08:32 69 109/63 (78) 02/15/18 08:15 18 02/15/18 08:00 64 78/63 (68) 02/15/18 07:45 18 02/15/18 07:30 61 103/66 (78) Objective Remarks GENERAL: Well-nourished, well-developed patient. CARDIOVASCULAR: Regular rate and rhythm without murmurs, gallops, or rubs. RESPIRATORY: Breath sounds equal bilaterally. No accessory muscle use. ABDOMEN/GI: Abdomen soft, non-tender. Fundus: Firm, non-tender at umbilicus. GENITOURINARY: Light to moderate bleeding. EXTREMITIES: No cyanosis or edema, non-tender, without signs of DVT. Medications and IVs Current Medications Medications (Trade) Dose Ordered Sig/Romain Route Start Time Stop Time Status Last Admin Oxytocin 500 ml @ 0 mls/hr TITRATE PRN IV 02/15/18 05:00 Penicillin G Potassium [id number] units/Sodium Chloride 100 ml @ 200 mls/hr Q4H IV 02/15/18 17:00 (NS Flush) 2 ml BID IV FLUSH 02/15/18 21:00 (NS Flush) 2 ml UNSCH PRN IV FLUSH 02/15/18 16:30 (Tylenol) 650 mg Q4H PRN PO 02/15/18 16:30 (Motrin) 800 mg Q8H PRN PO 02/15/18 16:30 (Percocet 5-325 Mg) 1 tab Q4H PRN PO 02/15/18 16:30 (Percocet 5-325 Mg) 2 tab Q4H PRN PO 02/15/18 16:30 (Americaine 20% Top Spr) 1 spray Q4H PRN TOPICAL 02/15/18 16:30 (Tucks Pads) 1 applic QID PRN TOPICAL 02/15/18 16:30 (Marisol-Colace) 2 tab Q12H PRN PO 02/15/18 16:30 (Ambien) 5 mg HS PRN PO 02/15/18 16:30 (Mag-Al Plus Susp Liq) 15 ml Q8H PRN PO 02/15/18 16:30 (Zofran Odt) 4 mg Q6H PRN PO 02/15/18 16:30 Miscellaneous Information No systemic narcotics to be given except... UNSCH PRN .XX 02/15/18 17:00 02/16/18 16:59 Miscellaneous Information DO NOT ADMINISTER ANY ANTICOAGUL... UNSCH PRN .XX 02/15/18 17:00 02/16/18 16:59 Fentanyl/ Bupivacaine HCl 100 ml @ 0 mls/hr TITRATE EPIDURAL 02/15/18 17:00 (ePHEDrine/NS 25 MG/5 ML SYR) 10 mg UNSCH PRN IV PUSH 02/15/18 17:00 02/16/18 16:59 Assessment/Plan Problem List: (1) Vaginal delivery ICD Codes: O80 - Encounter for full-term uncomplicated delivery Status: Acute Assessment and Plan 27 y/o who is PPD# 1 s/p . -Continue routine care. -Percocet and Motrin PRN pain. -Encouraged OOB. Advised pelvic rest for 6 wks. -Will need a f/u appt. within 6 wks. -Re: ctrl, she would like DepoProvera. -D/c tomorrow. wdw OB attending Fozia Sandoval MD R1 Feb 16, 2018 07:24
[2018-02-16 08:00] VITALS: BP 113/82; PULSE 20; RESP 20; TEMP 98; O2SAT 98
[2018-02-16 08:08] VITALS: PULSE 69
[2018-02-16] MEDS: SODIUM CHLORIDE 0.9% FLUSH 10 ML FLUSH IV FLUSH SCH (08:40)
[2018-02-16] MEDS ORDERED: medroxyPROGESTERone ACETATE SUSP 150 MG/ML SYRINGE IM ONE (08:45)
[2018-02-16] MEDS: PENICILLIN G POTASSIUM INJ 2,500,000 UNITS in SODIUM CHLORIDE 0.9% INJ 100 ML IV SCH ×3 (11:17→18:08)
[2018-02-16 20:00] VITALS: BP 109/66; PULSE 73; RESP 16; TEMP 98.2; O2SAT 98
--- NOTE | 2018-02-17 08:15 | HHI.OB ---
Subjective Post Day: 2 Remarks day # 2. AFVSS overnight. Pain well-controlled. Decreased lochia. Denies dysuria. No breast tenderness. She is feeding the baby via breast. Appetite good. No nausea or vomiting. + flatus. She had a bowel movement. Ambulating well. Denies calf pain, shortness of breath, or cough. Otherwise, she is doing well this morning and has no other complaints. Objective Vitals/I&O Vital Signs Date Time Temp Pulse Resp B/P (MAP) Pulse Ox O2 Delivery O2 Flow Rate FiO2 02/16/18 20:00 98.2 73 16 109/66 (80) 98 Objective Remarks GENERAL: Well-nourished, well-developed patient. CARDIOVASCULAR: Regular rate and rhythm without murmurs, gallops, or rubs. RESPIRATORY: Breath sounds equal bilaterally. No accessory muscle use. ABDOMEN/GI: Abdomen soft, non-tender. Fundus: Firm, non-tender at umbilicus. GENITOURINARY: Light to moderate bleeding. EXTREMITIES: No cyanosis or edema, non-tender, without signs of DVT. Medications and IVs Current Medications Medications (Trade) Dose Ordered Sig/Romain Route Start Time Stop Time Status Last Admin Oxytocin 500 ml @ 0 mls/hr TITRATE PRN IV 02/15/18 05:00 Penicillin G Potassium [id number] units/Sodium Chloride 100 ml @ 200 mls/hr Q4H IV 02/15/18 17:00 (NS Flush) 2 ml BID IV FLUSH 02/15/18 21:00 02/16/18 08:40 (NS Flush) 2 ml UNSCH PRN IV FLUSH 02/15/18 16:30 (Tylenol) 650 mg Q4H PRN PO 02/15/18 16:30 (Motrin) 800 mg Q8H PRN PO 02/15/18 16:30 (Percocet 5-325 Mg) 1 tab Q4H PRN PO 02/15/18 16:30 (Percocet 5-325 Mg) 2 tab Q4H PRN PO 02/15/18 16:30 (Americaine 20% Top Spr) 1 spray Q4H PRN TOPICAL 02/15/18 16:30 (Tucks Pads) 1 applic QID PRN TOPICAL 02/15/18 16:30 (Marisol-Colace) 2 tab Q12H PRN PO 02/15/18 16:30 (Ambien) 5 mg HS PRN PO 02/15/18 16:30 (Mag-Al Plus Susp Liq) 15 ml Q8H PRN PO 02/15/18 16:30 (Zofran Odt) 4 mg Q6H PRN PO 02/15/18 16:30 Fentanyl/ Bupivacaine HCl 100 ml @ 0 mls/hr TITRATE EPIDURAL 02/15/18 17:00 (Depo-Provera Inj) 150 mg ONCE ONCE IM 02/17/18 09:00 02/17/18 09:01 Assessment/Plan Problem List: (1) Vaginal delivery ICD Codes: O80 - Encounter for full-term uncomplicated delivery Status: Acute Assessment and Plan 27 y/o who is PPD# 2 s/p . -Continue routine care. -Percocet and Motrin PRN pain. -Encouraged OOB. Advised pelvic rest for 6 wks. -Will need a f/u appt. within 6 wks. -Re: ctrl, she would like DepoProvera. -D/c today. wdw OB attending Fozia Sandoval MD R1 Feb 17, 2018 08:15
[2018-02-17] MEDS ORDERED: IBUP1TAB7 PO (08:20)
--- NOTE | 2018-02-17 08:21 | HHI.DCPOC ---
Discharge Care Plan Diagnosis: (1) Vaginal delivery Report Symptoms to Your Doctor -Temperature above 100.5 degrees -Redness, of incision or excessive or foul smelling drainage -Unusual pain or calf pain -Increased vaginal bleeding -Painful or difficulty urinating -Feelings of extreme sadness or anxiety after 2 weeks Goals to Promote Your Health * To prevent worsening of your condition and complications * To maintain your health at the optimal level Directions to Meet Your Goals Take your medications as prescribed Follow your dietary instruction Follow activity as directed Ensure plenty of rest for recovery Drink fluids for hydration Keep your appointments as scheduled Take your immunizations and boosters as scheduled If your symptoms worsen call your PCP, if no PCP go to Urgent Care Center or Emergency Room Smoking is Dangerous to Your Health. Avoid second hand smoke Call the 24-hour crisis hotline for domestic abuse at Fozia Sandoval MD R1 Feb 17, 2018 08:21
[2018-02-17] MEDS: SODIUM CHLORIDE 0.9% FLUSH 10 ML FLUSH IV FLUSH SCH (09:00)
[2018-02-17] MEDS ORDERED: medroxyPROGESTERone ACETATE SUSP 150 MG/ML SYRINGE IM ONE (09:00)
[2018-02-17] MEDS: PENICILLIN G POTASSIUM INJ 2,500,000 UNITS in SODIUM CHLORIDE 0.9% INJ 100 ML IV SCH ×3 (09:00→17:00)
== END 2018-02-17 17:47 | disposition home or self-care (01) | DRG 775 ==
LOC: HOBED 02:58 → H2EA 03:16 → H1EA 17:48
PROVIDERS: ADMIT Obstetrics & Gynecology Maternal & Fetal Medicine; ATTEND Obstetrics & Gynecology Maternal & Fetal Medicine
PROC: 10E0XZZ Delivery of Products of Conception, External Approach (ICD-10-PCS; principal; 2018-02-15)
PROC: 10907ZC Drainage of Amniotic Fluid, Therapeutic from Products of Conception, Via Natural or Artificial Opening (ICD-10-PCS; 2018-02-15)
PROC: 0UQMXZZ Repair Vulva, External Approach (ICD-10-PCS; 2018-02-15)
DX: O71.82 Other specified trauma to perineum and vulva (principal); Z37.0 Single live birth; Z3A.38 38 weeks gestation of pregnancy; Z88.2 Allergy status to sulfonamides; Z91.040 Latex allergy status
CPT/HCPCS: 59025; 80307; 81001; 84112; 85025; 86900; 86901; 87086; 96374; J1050; J2540; J2590; J7120